=== PATIENT | male | born 1980 | race Caucasian/White ===

== ENCOUNTER 2023-01-19 08:49 | Inpatient (IN) | payer OTHER, SELFPAY ==
[2023-01-19] VITALS (25 sets, daily range): BP systolic 115–141; BP diastolic 67–89; PULSE 68–89; RESP 14–22; TEMP 36.3–37; O2SAT 94–100
--- NOTE | 2023-01-19 09:08 | ED_ITS ---
HPI - Abdominal Pain General Time Seen by Provider: 09:08 Date Seen: 01/19/23 Chief Complaint: Abdominal Pain Stated Complaint: Abdominal pain Time Seen by Provider: 01/19/23 09:08 Source: patient and RN notes reviewed Mode of arrival: ambulatory Limitations: no limitations History of Present Illness HPI narrative: Patient is a 42-year-old male coming in with worsening lower abdominal pain, primarily concentrated in the right to lower mid abdomen. Pain started yesterday but is worsening. He was feeling backed up, did take a laxative last night, did have looser stools overnight. This morning he was on the toilet going to go to the bathroom and had severe sudden 10/10 pain, made him go pale and white and diaphoretic per his report. He went into clinic to see Dr. Allen, was appropriately triaged over here given his severity of symptoms. He is nauseated but no vomiting today. Admits that he had minimal appetite yesterday. Denies any urinary symptoms. Has had a history of diverticulitis and states the pain has maybe started to feel like that. Does have a known right inguinal hernia but her knee is not hurting. Coughing will hurt in his abdomen. Denies any associated cough or cold symptoms. Denies any prior abdominal surgeries. Has not eaten today. MD elicited complaint: abdominal pain Pertinent past history: diverticulitis Related Data Allergies Allergy/AdvReac Type Severity Reaction Status Date / Time No Known Allergies Allergy Unknown Verified 01/19/23 10:04 Review of Systems Status of ROS Reports: 6 or more systems reviewed and unremarkable except as noted in History and below [facility] Medical History Abdominal pain ?R10.9 - Unspecified abdominal pain (ICD-10) Anxiety ?F41.9 - Anxiety disorder, unspecified (ICD-10) Diverticulitis ?K57.92 - Diverticulitis of intestine, part unspecified, without perforation or abscess without bleeding (ICD-10) Social History Smoking Status: Current every day smoker What tobacco products do you use: cigarettes How often do you have a drink containing alcohol: 2-4 times a month How many standard drinks containing alcohol do you have on a typical day: 1 or 2 AUDIT-C Alcohol total score: 2 Little interest or pleasure in doing things: not at all Feeling down, depressed, or hopeless: not at all Exam Const: Vital Signs, click to edit/add: Vital Signs - 24 hr 01/19/23 09:00 01/19/23 10:22 01/19/23 11:23 Temperature 97.3 F L 98.4 F Pulse Rate [Right Pulse Oximeter] 68 79 Respiratory Rate 22 22 Blood Pressure [Ri ght Upper Arm] 132/83 126/88 Pulse Oximetry 96 100 95 Oxygen Delivery Me thod Room Air Room Air Documenting provider has reviewed patient's vital signs: yes Common normals: no apparent distress, average body habitus, oriented x3, no limitations, healthy appearing and alert General appearance: cooperative, comfortable, well kempt and well developed HENMT: Common normals: normocephalic, head/scalp atraumatic, hearing grossly normal bilaterally, external ears normal and external nose normal Head and scalp: normocephalic and atraumatic Face and sinus: normal facial exam Nose: external nose normal External ear: external ears normal Eye: Common normals: PERRL, EOMs intact bilaterally, conjunctivae normal and no scleral icterus Conjunctiva: conjunctiva(e) normal Pupil: PERRL Neck & C-Spine: Common normals: full ROM, no lymphadenopathy, supple, no meningeal signs, no JVD and thyroid normal Thyroid: thyroid normal Lymph: Lymphatic: no lymphadenopathy noted Resp: Common normals: normal respiratory effort, no retractions, no use of accessory muscles and clear to auscultation bilaterally Effort & inspection: able to speak in complete sentences Auscultation: clear to auscultation bilaterally Cardio: Common normals: no JVD, regular rate, regular rhythm, S1 normal heart sound, S2 normal heart sound, no gallops, no clicks and no murmurs Rate: regular rate Rhythm: regular rhythm Heart sounds: S1 normal and S2 normal GI: Other: Patient has some epigastric tenderness on palpation without rebound or guarding, abdomen overall is soft. From the left lower quadrant to his right lower quadrant throughout the lower abdomen he is quite tender. There is some guarding in the right lower quadrant but I would not say he has rebound. I do not feel any underlying mass. Pain seems to be most concentrated in the right lower quadrant. Do not feel any strangulated hernia. Extremity: Other: Has some smaller pink base lesions with scale on his lower extremities but no underlying edema. Patient does confirm to me that he does have psoriasis. Neuro: Common normals: oriented x3 Sensorium/orientation: alert Meningeal signs: no meningeal signs Psych: Appearance: well kempt Course Course Hospital Course: This patient has obvious abdominal pain that certainly appendicitis and diverticulitis are running possibilities for diagnosis. He will need CT imaging and full complement of labs to further delineate possible internal abdominal diagnoses. Need to rule out surgical abdomen here. Will initiate IV fluids, given 4 mg IV Zofran and 15 mg IV Toradol. If the Toradol is not sufficient for pain control, will move to narcotics. Reevaluation(s) Time of Reevaluation #1: 10:49 Reevaluation #1: Spent 10 minutes reviewing with patient his diagnosis, possible plans of care at this time. He did ask that I explained to his whom he called on the phone and this was done. We are waiting surgeons decision for surgery here or transfer at this time. Patient's pain was not controlled by the Toradol, will give him some IV morphine. Time of Reevaluation #2: 12:06 Reevaluation #2: Dr. Michaels plans to go to OR. Consultations Consultation #1: Have contacted our general surgeon on-call Dr. Michaels. We have reviewed the case. She is going to review images and get back to me regarding taking him to the OR here or potential transfer after review of films. I will initiate Zosyn. Will let the patient know of his CT scan images at this time. Time: 10:35 Vital Signs Vital signs: Initial Vital Signs Temperature 97.3 F L 01/19/23 09:00 Temperature Source Temporal Artery Scan 01/19/23 09:00 Pulse Rate 68 01/19/23 09:00 Pulse Rhythm Regular 01/19/23 09:00 Respiratory Rate 22 01/19/23 09:00 Blood Pressure 132/83 01/19/23 09:00 Blood Pressure Mean 99 01/19/23 09:00 Pulse Oximetry 96 01/19/23 09:00 Oxygen Delivery Method Room Air 01/19/23 09:00 Vital Signs Temperature 97.3 F L 01/19/23 09:00 Pulse Rate 68 01/19/23 09:00 Respiratory Rate 22 01/19/23 09:00 Blood Pressure 132/83 01/19/23 09:00 Pulse Oximetry 96 01/19/23 09:00 Oxygen Delivery Method Room Air 01/19/23 09:00 Temperature 98.4 F 01/19/23 11:23 Pulse Rate 79 01/19/23 11:23 Respiratory Rate 22 01/19/23 11:23 Blood Pressure 126/88 01/19/23 11:23 Pulse Oximetry 95 01/19/23 11:23 Oxygen Delivery Method Room Air 01/19/23 11:23 MDM - Abdominal Pain Differential Diagnosis Differential diagnosis: Likely abdominal pain, acute appendicitis, diverticulitis, gastroenteritis and pancreatitis Lab Data Attestation: I reviewed the patient's lab results. Labs: Lab Results 01/19/23 01/19/23 Range/Units 09:20 10:30 WBC 17.40 H (4.50-11.00) K/uL RBC 6.13 H (4.30-5.90) m/uL Hgb 17.8 H (13.5-17.5) gm/dL Hct 54.9 H (37.0-53.0) % MCV 90 (80-100) fL MCH 29 (26-34) pg MCHC 32 (32-36) gm/dL RDW Coeff of Norman 13.5 (11.5-15.5) % Plt Count 166 (140-440) K/uL Neut % (Auto) 85.6 H (42.0-72.0) % Lymph % (Auto) 6.8 L (20-44) % Mcpherson % (Auto) 6.9 (0.0-11.0) % Eos % (Auto) 0.2 (0.0-7.0) % Baso % (Auto) 0.2 (0.0-3.0) % Neut # (Auto) 14.90 H (1.7-7.0) K/uL Lymph # (Auto) 1.20 (0.90-2.90) K/uL Mcpherson # (Auto) 1.20 H (0.00-0.90) K/UL Eos # (Auto) 0.00 (0.00-0.50) K/uL Baso # (Auto) 0.00 (0.00-0.30) K/uL Sodium 135 (135-149) mmol/L Potassium 4.2 (3.6-5.1) mmol/L Chloride 100 (96-114) mmol/L Carbon Dioxide 26 (20-32) mmol/L BUN 13 (5-24) mg/dL Creatinine 1.1 (0.5-1.5) mg/dL Estimated GFR 86 ml/min Glucose 153 H (60-115) mg/dL Lactate 1.4 (0.5-1.9) mmol/L Calcium 9.2 (8.4-10.6) mg/dL Total Bilirubin 2.0 H (0.1-1.5) mg/dL AST 24 (12-35) U/L ALT 29 (4-50) U/L Alkaline Phosphatase 71 (40-150) U/L C-Reactive Protein 20.3 H (0.5-1.0) mg/dL Total Protein 8.3 (6.0-8.3) g/dL Albumin 4.5 (3.3-5.0) g/dL Lipase 101 (23-300) U/L Urine Color Josephine A (Yellow) Urine Appearance Clear (Clear) Urine pH 7.0 (5.0-8.5) Ur Specific [place] 1.015 (1.000-1.030) Urine Protein Trace A (Negative) Urine Glucose (UA) Negative (Negative) Urine Ketones 1+ A (Negative) Urine Blood 1+ A (Negative) Urine Nitrite Negative (Negative) Urine Bilirubin Negative (Negative) Urine Urobilinogen 0.2 (0.2-1.0) Ur Leukocyte Esterase Negative (Negative) Urine RBC 0-2 (0-2) Urine WBC 0-2 (0-5) Ur Squamous Epith Cells None (None-Few) Urine Bacteria Few A (None) Imaging Data CT scan - abdomen: Attestation: I have reviewed the pertinent imaging results. Radiologist's impression: Patient: NICKIE JOHNS Facility:?[facility] Patient ID:?[id number] Site Patient ID:?[id number]. Site :?[id number] Study:?CT Abdomen/Pelvis 100 cc's Isovue 370-01/19/2023 10:03:27 AM Ordering Physician:?Leonie Ventura Final Report: INDICATION: Severe right lower quadrant abdominal pain. Nausea. History of diverticulitis. COMPARISON: None TECHNIQUE: CT examination of the abdomen and pelvis was performed following the uneventful intravenous administration of 100 cc of Isovue 370. Thin section axial images were obtained from the lung bases through the pubic symphysis. Oral contrast was not administered. Please note that all CT scans at this facility use dose modulation, iterative reconstruction, and/or weight-based dosing when appropriate to reduce radiation dose to as low as reasonably achievable. FINDINGS: LUNG BASES: The right lung is normal. There is atelectasis at the left base.The heart size is normal and the lung bases. There is a small hiatal hernia LIVER/BILIARY SYSTEM:The liver is normal in size and configuration. There is no focal mass and there is no intra- or extra hepatic biliary ductal dilatation.Hepatic steatosis. The gallbladder appears normal ADRENALS: The left adrenal gland is normal. There is a right adrenal mass measuring 3.7 x 3.1 centimeters. Based on its size and appearance, it should undergo formal evaluation by MRI at a clinically appropriate time KIDNEYS, URETERS and BLADDER:The kidneys appear normal. No visible mass, calculus or hydronephrosis. The ureters and bladder as visualized appear normal. SPLEEN:Normal appearance. PANCREAS: Appears normal. RETROPERITONEUM and MESENTERY: There is no mass, adenopathy or aortic aneurysm. GASTROINTESTINAL SYSTEM: Diverticulosis primarily in the sigmoid colon. Significant thickening and inflammatory change of the sigmoid colon deep within the pelvis. The sigmoid in this area is perforated and there is significant gas primarily in the root of the mesentery extending up the retroperitoneum. There is a small amount of extraluminal fluid in this area and there is what is likely free stool in the mesentery best seen on coronal image 74. Surgical consultation is advised. PELVIS: No mass, adenopathy or free fluid. OSSEOUS STRUCTURES and ABDOMINAL WALL: There is an age-appropriate appearance of the osseous structures.No significant abdominal wall defect. Discussed with Dr. Hadley at 10:25 a.m. on January 19, 2023 IMPRESSION: Findings consistent with complicated sigmoid diverticulitis. This appears to be perforated with significant air in the retroperitoneum and mesentery, a small amount of fluid and extraluminal fecal material. There is no collection at this time. Please note that all CT scans at this facility use dose modulation, iterative reconstruction, and/or weight-based dosing when appropriate to reduce radiation dose to as low as reasonably achievable. Dictated by Keron Pascual MD @ 01/19/2023 10:30:22 AM (Electronic Signature) Critical Care Time Critical Care Time Critical Care Time: No Discharge Plan Discharge Clinical Impression: Perforation of sigmoid colon due to diverticulitis Patient Disposition: XFER to OR Condition: Unchanged Follow Up/Referrals: Ajit Allen MD [Primary Care Provider] -
--- NOTE | 2023-01-19 09:13 | CRLHL7_ITS ---
For Patients: As a result of the Century Cures Act, medical imaging exams and procedure reports are released immediately into your electronic medical record. You may view this report before your referring provider. If you have questions, please contact your health care provider. INDICATION: Severe right lower quadrant abdominal pain. Nausea. History of diverticulitis. COMPARISON: None TECHNIQUE: CT examination of the abdomen and pelvis was performed following the uneventful intravenous administration of 100 cc of Isovue 370. Thin section axial images were obtained from the lung bases through the pubic symphysis. Oral contrast was not administered. Please note that all CT scans at this facility use dose modulation, iterative reconstruction, and/or weight-based dosing when appropriate to reduce radiation dose to as low as reasonably achievable. FINDINGS: LUNG BASES: The right lung is normal. There is atelectasis at the left base.The heart size is normal and the lung bases. There is a small hiatal hernia LIVER/BILIARY SYSTEM:The liver is normal in size and configuration. There is no focal mass and there is no intra- or extra hepatic biliary ductal dilatation.Hepatic steatosis. The gallbladder appears normal ADRENALS: The left adrenal gland is normal. There is a right adrenal mass measuring 3.7 x 3.1 centimeters. Based on its size and appearance, it should undergo formal evaluation by MRI at a clinically appropriate time KIDNEYS, URETERS and BLADDER:The kidneys appear normal. No visible mass, calculus or hydronephrosis. The ureters and bladder as visualized appear normal. SPLEEN:Normal appearance. PANCREAS: Appears normal. RETROPERITONEUM and MESENTERY: There is no mass, adenopathy or aortic aneurysm. GASTROINTESTINAL SYSTEM: Diverticulosis primarily in the sigmoid colon. Significant thickening and inflammatory change of the sigmoid colon deep within the pelvis. The sigmoid in this area is perforated and there is significant gas primarily in the root of the mesentery extending up the retroperitoneum. There is a small amount of extraluminal fluid in this area and there is what is likely free stool in the mesentery best seen on coronal image 74. Surgical consultation is advised. PELVIS: No mass, adenopathy or free fluid. OSSEOUS STRUCTURES and ABDOMINAL WALL: There is an age-appropriate appearance of the osseous structures.No significant abdominal wall defect. Discussed with Dr. Hadley at 10:25 a.m. on January 19, 2023 IMPRESSION: Findings consistent with complicated sigmoid diverticulitis. This appears to be perforated with significant air in the retroperitoneum and mesentery, a small amount of fluid and extraluminal fecal material. There is no collection at this time. Please note that all CT scans at this facility use dose modulation, iterative reconstruction, and/or weight-based dosing when appropriate to reduce radiation dose to as low as reasonably achievable. Dictated by Keron Pascual MD @ 01/19/2023 10:30:22 AM (Electronically Signed)
[2023-01-19 09:36] LABS: Basophils Percent Auto 0.2 % (0.0-3.0); Eosinophils Percent Auto 0.2 % (0.0-7.0); Hematocrit 54.9 % (37.0-53.0); Hemoglobin* 17.8 gm/dL (13.5-17.5); Immature Granulocytes Pct Auto 0.3 %; Lactate* 1.4 mmol/L (0.5-1.9); Lymphocytes Percent Auto 6.8 % (20-44); Mean Corpuscular HGB Conc 32 gm/dL (32-36); Mean Corpuscular Hemoglobin 29 pg (26-34); Mean Corpuscular Volume 90 fL (80-100); Monocytes Percent Auto 6.9 % (0.0-11.0); Neutrophils Percent Auto 85.6 % (42.0-72.0); Platelet Count* 166 K/uL (140-440); RDW Coefficient of Variation % 13.5 % (11.5-15.5); Red Blood Count 6.13 m/uL (4.30-5.90)
[2023-01-19 09:38] LABS: Slide Review Reflex No
[2023-01-19 09:57] LABS: Albumin* 4.5 g/dL (3.3-5.0); Chloride* 100 mmol/L (96-114); Sodium* 135 mmol/L (135-149)
[2023-01-19 09:58] LABS: Potassium* 4.2 mmol/L (3.6-5.1)
[2023-01-19 10:00] LABS: Alkaline Phosphatase* 71 U/L (40-150); Aspartate Amino Transferase* 24 U/L (12-35); Carbon Dioxide* 26 mmol/L (20-32); Creatinine* 1.1 mg/dL (0.5-1.5); Estimated Glomerular Filt Rate 86 ml/min
[2023-01-19 10:01] LABS: Alanine Aminotransferase* 29 U/L (4-50); Blood Urea Nitrogen* 13 mg/dL (5-24); Calcium* 9.2 mg/dL (8.4-10.6); Glucose* 153 mg/dL (60-115); Lipase* 101 U/L (23-300); Total Protein* 8.3 g/dL (6.0-8.3)
[2023-01-19] MEDS: 0.9 % SODIUM CHLORIDE 1000 ml 1,000 ML 500 ML IV (10:09)
[2023-01-19] MEDS: ONDANSETRON 2 MG/ML inj 4 MG IVP (10:10)
[2023-01-19] MEDS: KETOROLAC 15 MG/ML inj IVP ×2 (10:11→19:29)
[2023-01-19 10:18] LABS: C Reactive Protein* 20.3 mg/dL (0.5-1.0)
[2023-01-19 10:53] LABS: Appearance Urine Clear (Clear); Bilirubin Urine Negative (Negative); Blood Urine 1+ (Negative); Color Urine Orange (Yellow); Glucose Urine Negative (Negative); Ketones Urine 1+ (Negative); Leukocyte Esterase Urine Negative (Negative); Nitrite Urine Negative (Negative); Protein Urine Trace (Negative); Specific Gravity Urine 1.015 (1.000-1.030); Urobilinogen Urine 0.2 (0.2-1.0)
[2023-01-19] MEDS: MORPHINE 4 MG/ML INJ IVP (11:02)
[2023-01-19] MEDS: PIPERACILLIN/TAZOBACTAM 3.375 GM in 0.9 % SODIUM CHLORIDE Mini-bag 100 ML IVPB ×3 (11:04→22:19)
[2023-01-19 11:05] LABS: RBC Urine 0-2 (0-2); WBC Urine 0-2 (0-5)
[2023-01-19 11:06] LABS: Bacteria Urine Few
--- NOTE | 2023-01-19 11:29 | ED.NURSE ---
Pt reports last drink of water this morning at 2:30am, last bite of food was yesterday at 14:30.
--- NOTE | 2023-01-19 12:47 | PM.GSHP ---
History of Present Illness History of Present Illness Date Seen: 01/19/23 Chief complaint: Abdominal pain Narrative: Rob Krishnamurthy is a 42 year old male who presented to the ED this morning with severe lower abdominal pain. He stated that yesterday morning he woke up with pain in his pelvis. He states that he was able to eat some lunch but did not really feel well most of the day. He went to bed around 430. He woke up around 8:00 p.m. to watch prior works but then went back to bed. Around this time he was noted to have a fever of 101.7. This morning he had a dark watery bowel movement. He then went to have another bowel movement and he had pain which was so severe he became white and diaphoretic had a syncopal episode. At this point his brought him in to be seen. He states that he has a known right inguinal hernia. This has been more prominent and painful as well. He has had nausea but no vomiting. He states that initially the pain medicine that he was given in the ER did not help however he recently got morphine which did help calm things down. If he lays still he does not have pain. Movement causes severe pain. He states that he has had diverticulitis in the past. Most recently was approximately [address] scan was done, however he did get Augmentin and his symptoms resolved. Prior to this he states that he had an episode many years ago. I do not believe that this was CT confirmed. He has never had a colonoscopy. He has no family history of colon cancer. [facility] Medical History (Updated 01/19/23 @ 12:59 by Madhuri Michaels MD) Tobacco dependence ?F17.200 - Nicotine dependence, unspecified, uncomplicated (ICD-10) Obstructive sleep apnea syndrome ?G47.33 - Obstructive sleep apnea (adult) (pediatric) (ICD-10) Hyperlipidemia ?E78.5 - Hyperlipidemia, unspecified (ICD-10) Anxiety ?F41.9 - Anxiety disorder, unspecified (ICD-10) Diverticulitis ?K57.92 - Diverticulitis of intestine, part unspecified, without perforation or abscess without bleeding (ICD-10) Surgical History (Updated 01/19/23 @ 13:00 by Madhuri Michaels MD) H/O vasectomy ?Z98.52 - Vasectomy status (ICD-10) Social History (Updated 01/19/23 @ 13:01 by Madhuri Michaels MD) Narrative: 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 He is and has 4 children ages 2-19 years. Smoking Status: Current every day smoker What tobacco products do you use: cigarettes How often do you have a drink containing alcohol: 2-4 times a month How many standard drinks containing alcohol do you have on a typical day: 1 or 2 AUDIT-C Alcohol total score: 2 Little interest or pleasure in doing things: not at all Feeling down, depressed, or hopeless: not at all Meds Home Medications and Allergies Allergies Allergy/AdvReac Type Severity Reaction Status Date / Time No Known Allergies Allergy Unknown Verified 01/19/23 10:04 Exam Narrative: Exam Narrative: General appearance: Alert, cooperative, flushed appearing HENT Head: Normocephalic Ears: External ears normal Pulmonary: Clear to auscultation bilaterally Cardiovascular Heart: Regular rate and rhythm Extremities: warm and well perfused Gastrointestinal Abdominal: No scars. He is markedly tender in his lower and mid abdomen with significant rebound tenderness and guarding. The upper abdomen is minimally tender Musculoskeletal: Extremities: Upper: Both upper extremities have normal joint range of motion and intact strength. Lower: Both lower extremities have normal joint range of motion and intact strength. Skin: Normal skin color, texture, and turgor. Neurologic: No focal deficits Psychiatric: Alert, oriented, cooperative, normal affect. Const: Vital Signs, click to edit/add: Vital Signs - 24 hr 01/19/23 09:00 01/19/23 10:22 01/19/23 11:23 Temperature 97.3 F L 98.4 F Pulse Rate [Right Pulse Oximeter] 68 79 Respiratory Rate 22 22 Blood Pressure [Ri ght Upper Arm] 132/83 126/88 Pulse Oximetry 96 100 95 Oxygen Delivery Me thod Room Air Room Air Results Results Labs: White blood cell count is elevated at 17.4. Hemoglobin also elevated at 17.8 Total bilirubin is 2.00. CRP 20.3 Lactate 1.4. Electrolytes within normal limits. Abdomen CT scan report/results: report reviewed and image reviewed Additional studies: CT scan of the abdomen pelvis done today: FINDINGS: LUNG BASES: The right lung is normal. There is atelectasis at the left base.The heart size is normal and the lung bases. There is a small hiatal hernia LIVER/BILIARY SYSTEM:The liver is normal in size and configuration. There is no focal mass and there is no intra- or extra hepatic biliary ductal dilatation.Hepatic steatosis. The gallbladder appears normal ADRENALS: The left adrenal gland is normal. There is a right adrenal mass measuring 3.7 x 3.1 centimeters. Based on its size and appearance, it should undergo formal evaluation by MRI at a clinically appropriate time KIDNEYS, URETERS and BLADDER:The kidneys appear normal. No visible mass, calculus or hydronephrosis. The ureters and bladder as visualized appear normal. SPLEEN:Normal appearance. PANCREAS: Appears normal. RETROPERITONEUM and MESENTERY: There is no mass, adenopathy or aortic aneurysm. GASTROINTESTINAL SYSTEM: Diverticulosis primarily in the sigmoid colon. Significant thickening and inflammatory change of the sigmoid colon deep within the pelvis. The sigmoid in this area is perforated and there is significant gas primarily in the root of the mesentery extending up the retroperitoneum. There is a small amount of extraluminal fluid in this area and there is what is likely free stool in the mesentery best seen on coronal image 74. Surgical consultation is advised. PELVIS: No mass, adenopathy or free fluid. OSSEOUS STRUCTURES and ABDOMINAL WALL: There is an age-appropriate appearance of the osseous structures.No significant abdominal wall defect. Discussed with Dr. Hadley at 10:25 a.m. on January 19, 2023 IMPRESSION: Findings consistent with complicated sigmoid diverticulitis. This appears to be perforated with significant air in the retroperitoneum and mesentery, a small amount of fluid and extraluminal fecal material. There is no collection at this time. Please note that all CT scans at this facility use dose modulation, iterative reconstruction, and/or weight-based dosing when appropriate to reduce radiation dose to as low as reasonably achievable. Dictated by Keron Pascual MD @ 01/19/2023 10:30:22 AM Assessment and Plan Assessment and plan (1) Perforation of sigmoid colon due to diverticulitis: Status: Acute (2) Tobacco dependence: Status: Acute (3) Obstructive sleep apnea syndrome: Status: Acute Plan The patient is a 42-year-old male with perforated diverticulitis. He does appear to have peritonitis on exam and has been afebrile though currently is not febrile. I reviewed the images with the radiologist as well as on my own. There is a significant amount of air in the retroperitoneum and there also dots in the pericolonic fat more anterolaterally as well. It does not obviously appear as though the air is free within the peritoneum itself, though there is a small amount of intraperitoneal fluid. Because of the degree of air which is tracking within the retroperitoneum, even up to the aortic bifurcation, and his clinical exam, I think that the best course of action is laparotomy with sigmoidectomy. We discussed the surgery, indications as well as risks and benefits. I explained to him that in the setting of emergency diverticulitis surgery, because of the intra-abdominal contamination, infection and risk of anastomotic leak, generally a temporary stoma is necessary. This can either be in the form of an end colostomy with a Poncho's pouch or a primary anastomosis with a diverting loop ileostomy depending on the degree of intra-abdominal contamination and the amount of colon affected. I explained the rationale behind each. We discussed risks of surgery including bleeding, infection and injury to other structures. We discussed his hospital stay, recovery after surgery and also briefly touched on the timing of stoma takedown. He was understandably somewhat overwhelmed about this, however, asked appropriate questions and agreed to proceed. We are planning on surgery emergently as soon as the OR is available.
--- NOTE | 2023-01-19 13:05 | ED.NURSE ---
Pt admitted to OR
--- NOTE | 2023-01-19 13:16 | ED.NURSE ---
Pt reporting an increase in pain again after urinating.
[2023-01-19] MEDS: LACTATED RINGERS 1000 ML 1,000 ML 100 ML IV ×4 (13:17→18:49)
--- NOTE | 2023-01-19 15:16 | SUR.OPER ---
FAMILY UPDATE: THIS SOLID TIRE TUBER MACHINE OPERATOR SPOKE TO THE PATIENT'S (ALIN) TO UPDATE THE PROGRESS OF THE PROCEDURE.
--- NOTE | 2023-01-19 16:00 | SUR.OPER ---
FAMILY UPDATE: THIS AGRICULTURE RESEARCH DIRECTOR SPOKE TO THE PATIENT'S (ALIN) TO GIVE AN UPDATE ON THE PROGRESS OF THE PROCEDURE.
--- NOTE | 2023-01-19 17:04 | SUR.OPER ---
FAMILY UPDATE: THIS ENROLLMENT CONSULTANT INFORMED THE PATIENT'S (ALIN) THAT THE PROCEDURE TO COMPLETE AND WE ARE CLOSING THE INCISIONS. THIS ENROLLMENT CONSULTANT ALSO INFORMED ALIN THAT THE PATIENT WILL BE GOING TO RECOVERY AND THEN (ULTIMATELY) TO THE MEDICAL/SURGICAL UNIT.
--- NOTE | 2023-01-19 17:56 | PM.GSPRC ---
Operative Note Date of procedure: 01/19/23 Pre-op diagnosis: Perforated diverticulitis with peritonitis Post-op diagnosis: Same Type of Procedure: 1. Exploratory laparotomy 2. Sigmoidectomy with primary anastomosis 3. Incidental appendectomy 4. Diverting Loop ileostomy Indications: The patient is a 42-year-old male who presented to the emergency department with severe abdominal pain. In he had a history of diverticulitis in the past. He was felt to have a perforation of his sigmoid colon with significant retroperitoneal air as well as some fluid in the abdomen. Because of the degree of retroperitoneal air and concern for peritonitis on his abdominal exam, I recommended laparotomy and sigmoidectomy. Procedure Description: After discussing the risks and benefits of the procedure, the patient signed informed consent.? The operative site was marked and the patient was brought to the operating room and placed on the operating table in supine position.? Care was taken to pad the patient's pressure points.?? The patient was then intubated by anesthesia.? He was placed in lithotomy position. A Youngblood catheter was then placed.? The operative site was then prepped and draped in the usual sterile fashion.? A time-out was then performed. An incision was made in the midline from just above the umbilicus to just above the pubic bone. Dissection was taken down into the subcutaneous tissue with cautery until the fascia was encountered. This was incised in the midline. The peritoneal cavity was entered. There was a smell of enteric contents noted however no overt purulence. An Hansel wound retractor was then placed into the wound. An Omni retractor was then brought into the field in used to retract the abdominal wall. The patient was placed into Trendelenburg I then ran the small bowel from the ligament of Treitz that was cecal valve. There were some adhesions between palpable mass in the pelvis and the small bowel. There was fibrinous inflammation on 1 loop of small bowel. The distal ileum was adherent to the lateral pelvic wall on the right. These adhesions were taken down with the Metzenbaum scissors. Once this was done the small bowel was then packed up into the upper abdomen, exposing the pelvis and sigmoid colon. A large inflammatory mass was encountered. This was adherent to the left pelvis. Using a right angle and cautery, I was able to divide some of these adhesions anterolaterally, freeing up the sigmoid colon with the inflammatory mass. I further mobilized the sigmoid colon from the lateral pelvic sidewall by incising the lateral peritoneal attachment. This was divided with cautery using a right angle scissor. Great care was taken to divide only the peritoneum to avoid injury to the retroperitoneal structures. Once this was free, I was able to pull the mass out of the pelvis. There was purulent fluid in the pelvis. The pericolonic fat was necrotic and draining murky fluid which was foul smelling. I was able to palpate soft rectum below the inflammatory mass as well as healthy descending colon superior to it. I began by creating a mesenteric window above the inflammatory mass in the healthy area at the junction of the descending colon and the sigmoid colon. I then divided the colon using a blue load ALIS stapler. Then using the LigaSure, I divided the sigmoid colon mesentery. Small vessels which were visible were doubly ligated with suture. Once we reached the area of the mass, there was jase stool noted in the mesentery. This was carefully removed and suction to avoid any further contamination. I took my dissection down to the superior aspect of the rectum. I dissected the pericolonic fat using cautery, clearing off proximal rectum for the stapler. Then using a contour stapler, I divided the colon at the superior aspect of the rectum. The staple line appeared healthy without any signs of bleeding. A small bleeding vessel in the mesentery was oversewn. Hemostasis at this point appeared excellent. Specimen was sent to pathology with a stitch at the proximal end. I then turned my attention to mobilizing proximal colon. Using a combination of dissection with a right angle as well as finger dissection, I was able to take down the lateral peritoneal attachments using cautery. I took this up to the splenic flexure. The colon was noted to be very mobile and dropped easily past the pelvic brim down into the pelvis. Because of this I did not feel any further mobilization was necessary. I then removed the staple line from the distal colon. I then inserted the anvil of a 31 mm EEA stapler into the open end of the colon. I then created a pursestring suture using 2-0 Prolene. I snugged this down. I then cleared the fat from the colon using a combination of cautery as well as 3-0 silk ties to tie off any small blood vessels. Once this was done I created a 2nd pursestring using 3-0 Vicryl to ensure the end of the colon was snugged up around the anvil. I then dropped this back into the abdomen. I then performed a proctoscopy. The proctoscope was advanced in through the anus up into the rectum after performing a digital rectal exam. The rectal stump measured 17 cm. I then sequentially passed the dilators to ensure the stapler would pass. These passed easily. I then inserted the EEA stapler. Once this was appropriately seated at the end of the rectal stump I deployed the trocar. My assistant professor of english then hooked the anvil in the distal colon to the trocar. I closed the stapler and waited 30 seconds. I then deployed the stapler in waited another 30 seconds. I removed the stapler according to the manufacture's instructions. There was noted to be 2 complete anastomotic rings. I then performed a 2nd proctoscopy. There was a small amount of blood in the rectum. The leak test was negative. Now that this was done I scrubbed back in and irrigated the abdomen with copious saline. There was no further purulent fluid. I examined the retroperitoneum where there had been significant air and there was no further murky fluid emerging. There did not appear to be any undrained pockets. The patient and I had discussed possible incidental appendectomy and because there I had been minimal blood loss and the case had gone smoothly I elected to perform this. I examined the appendix. It was somewhat edematous distally, likely from the inflammatory process. I divided the mesentery using the LigaSure. I then divided the appendiceal base using a blue load ALIS stapler. The appendix was then sent to pathology. Because of the contaminated nature of the case in the fact that the patient is a smoker, I elected to proceed with a diverting loop ileostomy to protect the anastomosis. I identified an area of ileum which was approximately 20-30 cm from the ileocecal valve. This came up easily to the abdominal wall. I then removed the Hansel wound retractor as well as the Omni retractor. I chose an area of abdominal wall that was lateral to the umbilicus based on the patient's abdominal wall anatomy. I incised the skin into dissection down to the rectus sheath. A cruciate incision was then created with cautery. The rectus muscle fibers were then bluntly spread exposing the posterior sheath. A cruciate incision was made posteriorly as well. I was then able to pass 2 fingers through the stoma trephine. Through this I then passed the loop of ileum after confirming that it was appropriately oriented. Once this was done, the fascia was closed with a running looped 0 Maxon suture. The wound was copiously irrigated. The majority of the wound was closed with 3 0 Vicryl dermal and 4-0 Monocryl running subcuticular suture. The inferior aspect of the wound was left open given the contaminated nature of this case. Sterile dressing was then applied. I then turned my attention to maturing the stoma. I incised the anti mesenteric aspect of the ileum. I then matured the stoma in a Iliana fashion with 3-0 Vicryl [place] sutures. I then created a mucocutaneous junction with full-thickness bites of the bowel as well as the dermis circumferentially. The stoma was interrogated and both limbs were patent through the fascia. Stoma appliance was then placed. The patient was then woken and transported to the recovery area in stable condition. ? The patient tolerated the procedure well. Findings: Perforated diverticulitis with purulence in the pelvis and necrotic pericolonic fat with stool spillage in the retroperitoneum. Anesthesia: GETA Surgeon: Madhuri Michaels MD Estimated blood loss (mL): 50 Additional Specimen Information: 1. Sigmoid colon with stitch proximal and anastomotic ring 2. Appendix Condition: stable Disposition: PACU
--- NOTE | 2023-01-19 17:58 | P.ANES_ITS ---
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
--- NOTE | 2023-01-19 17:59 | P.NB_ITS ---
Nerve Block Nerve Block Time Seen by Provider: 13:25 Date Seen: 01/19/23 Type of block requested by surgeon for post-operative analgesia: TAP Side: bilateral Time out performed: Yes Verification of patient name: Yes Verification of date of : Yes Site marking: not applicable Name of person performing procedure: joanna Continuous monitoring Was continuous monitoring of O2 sat, B/P, residential monitor, recorded every 15 minutes?: Yes Procedure Checklist: sterile prep, needles and gloves Ultrasound guided. Images saved: Yes Medications given in 5ml increments after negative aspiration: Marcaine %: 0.25 mL: 30 Needle gauge: 20 and Exparel mL: 10 Patient tolerated procedure well: Yes Block Charges Block Charge (with Pro Fee): TAP Bilateral Use of Ultrasound Machine for Block: Yes- US Guidance/pain block
[2023-01-19] MEDS: fentaNYL 100 MCG/2 ML inj 50 MCG IVP (18:20)
[2023-01-19] MEDS: HYDROmorphone 0.5 mg/0.5 ml inj IVP ×3 (19:00→22:20)
[2023-01-19] MEDS: NICOTINE 21 MG PATCH 1 PATCH TRANSDERMA (19:21)
[2023-01-19] MEDS: BENZOCAINE/MENTHOL 1 EACH LOZENGE MUCOUS MEM (20:22)
[2023-01-19] MEDS: HYDROCODONE-ACETAMIN 5-325 MG 1 TAB PO (21:29)
--- NOTE | 2023-01-19 22:09 | PC.NURSE ---
Updated Dr. Michaels on patient's request for sleep med, order for Melatonin obtained. Also updated on pain 01/24, VSS (HR 70's, SBP 120's) to continue with ordered pain medications at this time.
[2023-01-19] MEDS: MELATONIN 3 MG TABLET PO (22:31)
[2023-01-20] VITALS (7 sets, daily range): BP systolic 109–134; BP diastolic 69–92; PULSE 69–109; RESP 16–18; TEMP 36.2–37; O2SAT 92–97
[2023-01-20] MEDS: HYDROmorphone 0.5 mg/0.5 ml inj IVP ×5 (00:31→22:45)
[2023-01-20] MEDS: ONDANSETRON 2 MG/ML inj IVP ×4 (00:46→19:07)
[2023-01-20] MEDS: HYDROCODONE-ACETAMIN 5-325 MG 1 TAB PO ×4 (01:11→21:16)
[2023-01-20] MEDS: PIPERACILLIN/TAZOBACTAM 3.375 GM in 0.9 % SODIUM CHLORIDE Mini-bag 100 ML IVPB ×4 (03:51→21:16)
[2023-01-20] MEDS: KETOROLAC 15 MG/ML inj IVP ×3 (05:20→20:36)
[2023-01-20] MEDS: LORazepam 2 MG/ML inj IVP ×3 (05:44→21:15)
[2023-01-20 06:48] LABS: Hemoglobin* 14.9 gm/dL (13.5-17.5); Immature Granulocytes Pct Auto 0.2 %; Lymphocytes Percent Auto 5.4 % (20-44); Mean Corpuscular HGB Conc 32 gm/dL (32-36); Mean Corpuscular Hemoglobin 29 pg (26-34); Mean Corpuscular Volume 91 fL (80-100); Monocytes Percent Auto 6.3 % (0.0-11.0); Neutrophils Percent Auto 88.1 % (42.0-72.0); Platelet Count* 170 K/uL (140-440); Red Blood Count 5.08 m/uL (4.30-5.90); White Blood Count* 18.49 K/uL (4.50-11.00)
[2023-01-20 06:52] LABS: Slide Review Reflex No
--- NOTE | 2023-01-20 06:55 | PC.NURSE ---
Patient admitted to unit at 1837 status post op sigmoidectomy with ostomy. Pain to midline abdomen reported throughout shift, patient utilizing PRN dilaudid, ketorolac and norco as well as an ice pack for pain. Patient continues to report pain at 5-7/10 with medication use, Dr Michaels update at 2200 with patients continued pain and request for sleep medication. New order for melatonin PRN and to continue medications as ordered. Dressing to midline intact, small amount of bloody drainage noted at distal end of dressing, integrity not compromised. Patient reporting throat pain, benzocaine throat lozenges ordered and patient reporting moderate relief. Indwelling paez catheter patent, draining cloudy orange/pink urine. Patient reports pain when tubing to catheter is moved. Requesting SCD's to be removed, after one hour they were replaced and patient not tolerating them, changed to plexipulses but patient stating they are bothering him. Instructed on ankle pumps. Increased anxiety, having difficulty sleeping due to worries over his current illness, how home life will be and working. Dr. Michaels updated and ordered PRN ativan, 0.5mg administered at 0545 with minimal effectiveness. Indigestion reported, omeprazole and tums ordered, awaiting verification from pharmacy. Cary RN will administer medication once available from pharmacy. Patient room change from CCU1 to CCU3 due to high pitched noise coming from vents, unable to tolerate lighting from hallway while in CCU3 and no sleep masks available, patient moved to 282 to provide a quiet, restful environment.
[2023-01-20 07:10] LABS: Albumin* 3.2 g/dL (3.3-5.0)
[2023-01-20 07:11] LABS: Chloride* 100 mmol/L (96-114); Potassium* 4.6 mmol/L (3.6-5.1); Sodium* 134 mmol/L (135-149)
[2023-01-20 07:13] LABS: Aspartate Amino Transferase* 25 U/L (12-35); Bilirubin Direct* 0.8 mg/dL (0.0-0.5); Carbon Dioxide* 28 mmol/L (20-32); Creatinine* 0.9 mg/dL (0.5-1.5); Estimated Glomerular Filt Rate 109 ml/min; Total Protein* 6.3 g/dL (6.0-8.3)
[2023-01-20 07:14] LABS: Alanine Aminotransferase* 24 U/L (4-50); Alkaline Phosphatase* 55 U/L (40-150); Blood Urea Nitrogen* 16 mg/dL (5-24); Glucose* 127 mg/dL (60-115)
[2023-01-20 07:15] LABS: Calcium* 8.1 mg/dL (8.4-10.6)
[2023-01-20] MEDS: OMEPRAZOLE 20 MG CAPSULE DR PO (07:38)
[2023-01-20] MEDS: CALCIUM CARBONATE 500 MG CHEW PO ×3 (07:46→19:07)
[2023-01-20] MEDS: LACTATED RINGERS 1000 ML 1,000 ML 100 ML IV ×2 (07:47→17:00)
--- NOTE | 2023-01-20 12:35 | PM.GSPN ---
Subjective Subjective Date Seen: 01/20/23 Interval history: Patient did well overnight. He did not sleep at all. His pain is controlled with pain medication. He seems very overwhelmed by his condition and his surgery. Complains of heartburn and nausea. Exam Narrative: Exam Narrative: Abdomen is soft, not distended, surgical incision is covered with dry dressing. Right-sided ileostomy is pink. Const: Vital Signs, click to edit/add: Vital Signs - 24 hr 01/19/23 13:06 01/19/23 17:50 01/19/23 17:55 Temperature 98.3 F 98.1 F Pulse Rate 89 76 Pulse Rate [Right Pulse Oximeter] 71 Respiratory Rate 20 18 16 Blood Pressure 137/83 140/86 H Blood Pressure [Le ft Arm] Blood Pressure [Ri ght Upper Arm] 133/85 Pulse Oximetry 98 95 95 Oxygen Delivery Me thod Room Air Room Air Room Air Oxygen Flow Rate 01/19/23 18:00 01/19/23 18:05 01/19/23 18:10 Temperature Pulse Rate 85 77 74 Pulse Rate [Right Pulse Oximeter] Respiratory Rate 16 14 14 Blood Pressure 136/89 136/83 131/79 Blood Pressure [Le ft Arm] Blood Pressure [Ri ght Upper Arm] Pulse Oximetry 94 97 96 Oxygen Delivery Me thod Room Air Nasal Cannula Nasal Cannula Oxygen Flow Rate 2 2 01/19/23 18:15 01/19/23 18:20 01/19/23 18:25 Temperature 97.6 F Pulse Rate 79 68 80 Pulse Rate [Right Pulse Oximeter] Respiratory Rate 14 14 14 Blood Pressure 135/85 133/86 141/84 H Blood Pressure [Le ft Arm] Blood Pressure [Ri ght Upper Arm] Pulse Oximetry 96 95 96 Oxygen Delivery Me thod Nasal Cannula Nasal Cannula Nasal Cannula Oxygen Flow Rate 2 2 2 01/19/23 18:30 01/19/23 18:40 01/19/23 18:43 Temperature 98.4 F Pulse Rate 77 Pulse Rate [Right Pulse Oximeter] 80 Respiratory Rate 14 20 Blood Pressure 124/86 Blood Pressure [Le ft Arm] 127/80 Blood Pressure [Ri ght Upper Arm] Pulse Oximetry 96 96 96 Oxygen Delivery Me thod Nasal Cannula Nasal Cannula Oxygen Flow Rate 2 1 01/19/23 18:45 01/19/23 19:00 01/19/23 19:15 Temperature 98.4 F 97.8 F Pulse Rate Pulse Rate [Right Pulse Oximeter] 82 79 77 Respiratory Rate 20 20 Blood Pressure Blood Pressure [Le ft Arm] 130/77 132/85 128/84 Blood Pressure [Ri ght Upper Arm] Pulse Oximetry 95 95 96 Oxygen Delivery Me thod Nasal Cannula Nasal Cannula Nasal Cannula Oxygen Flow Rate 1 1 1 01/19/23 19:30 01/19/23 19:44 01/19/23 20:00 Temperature 98.4 F Pulse Rate 80 Pulse Rate [Right Pulse Oximeter] 77 79 Respiratory Rate 16 20 Blood Pressure Blood Pressure [Le ft Arm] 120/83 127/80 117/75 Blood Pressure [Ri ght Upper Arm] Pulse Oximetry 97 96 Oxygen Delivery Me thod Nasal Cannula Nasal Cannula Nasal Cannula Oxygen Flow Rate 1 1 1 01/19/23 20:30 01/19/23 21:30 01/19/23 22:30 Temperature Pulse Rate Pulse Rate [Right Pulse Oximeter] 75 80 70 Respiratory Rate 16 Blood Pressure Blood Pressure [Le ft Arm] 133/87 129/67 124/76 Blood Pressure [Ri ght Upper Arm] Pulse Oximetry 96 98 96 Oxygen Delivery Me thod Nasal Cannula Nasal Cannula Nasal Cannula Oxygen Flow Rate 1 1 1 01/19/23 23:30 01/20/23 00:30 01/20/23 03:00 Temperature 98.6 F 98.6 F 97.2 F L Pulse Rate Pulse Rate [Right Pulse Oximeter] 80 78 69 Respiratory Rate 16 16 16 Blood Pressure Blood Pressure [Le ft Arm] 115/71 119/77 109/75 Blood Pressure [Ri ght Upper Arm] Pulse Oximetry 97 96 97 Oxygen Delivery Me thod Nasal Cannula Nasal Cannula Room Air Oxygen Flow Rate 1 1 01/20/23 07:00 01/20/23 07:00 01/20/23 07:00 Temperature 97.2 F L Pulse Rate Pulse Rate [Right Pulse Oximeter] 77 77 Respiratory Rate 16 16 Blood Pressure Blood Pressure [Le ft Arm] 122/81 Blood Pressure [Ri ght Upper Arm] Pulse Oximetry 96 96 Oxygen Delivery Me thod Room Air Oxygen Flow Rate Progress Note: A&P Assessment and plan (1) Perforation of sigmoid colon due to diverticulitis: Status: Acute Plan 42-year-old male s/p exploratory laparotomy, sigmoidectomy with primary anastomosis and diverting loop ileostomy POD 1. We will full keep the Youngblood catheter in for another day. Patient has some pink sediment in the catheter. I discussed with the patient that he should avoid drinking too much water since he may have postoperative ileus. Encourage him to ambulate as much as possible. Lovenox for DVT prophylaxis.
[2023-01-20] MEDS: PROCHLORPERAZINE 5 MG/ML VIAL 10 MG IV ×2 (12:51→19:52)
--- NOTE | 2023-01-20 13:24 | NUTR.NU ---
RDN with MD consult for diet education regarding new ileostomy. Patient was provided diet education related to new ileostomy.? Education provided on following a low fiber diet for the next ~4 weeks or per MD recommendation.? Education included recommendations on following a low-fiber diet of less than 13 grams of fiber per day and included foods that are recommended and not recommended.? Also reviewed foods that may cause blockage, foods that may cause gas or odor, foods that may help relieve gas or odor, foods that may cause diarrhea, foods that may help thicken stool, and foods that may discolor stool. Verbal and written information as well as sample menus provided from [facility] on nutrition therapy for ileostomy and low-fiber diet.? Patient verbalized understanding and had no questions or concerns.? RDN's contact information was provided and patient was encouraged to contact RDN with questions. RDN will continue to monitor PRN.
[2023-01-20] MEDS: NICOTINE 21 MG PATCH 1 PATCH TRANSDERMA (19:07)
--- NOTE | 2023-01-20 19:55 | PC.NURSE ---
End of Shift: Pain to midline abdomen reported throughout shift, patient utilizing PRN dilaudid, ketorolac and norco as well as an ice pack for pain see eMAR. Patient continues to report pain at 5-7/10 with medication use. Dressing to midline intact, small amount of bloody drainage noted at distal end of dressing. Dressing will be changed tomorrow 01/20 per MD Maxwell. Indwelling paez catheter patent, draining cloudy orange/pink urine. Patient had increased anxiety throughout the day about his situation, PRN ativan, 0.5mg administered with relief. Indigestion reported, omeprazole and tums administered with minimal relief, technical writer called Dr. Maxwell and PRN compazine administered. Patient managed to sleep a few hours from [id number].
[2023-01-20] MEDS: ENOXAPARIN 40 MG/0.4 ML INJ SUBCUT (20:36)
[2023-01-20] MEDS: PANTOPRAZOLE SODIUM 40 MG INJ IVP (20:36)
[2023-01-20] MEDS: MELATONIN 3 MG TABLET PO (22:45)
[2023-01-21] MEDS: PROCHLORPERAZINE 5 MG/ML VIAL 10 MG IV ×3 (02:05→23:59)
[2023-01-21] MEDS: HYDROCODONE-ACETAMIN 5-325 MG 1 TAB PO ×2 (02:05→14:32)
[2023-01-21] MEDS: LACTATED RINGERS 1000 ML 1,000 ML 100 ML IV ×2 (02:07→16:55)
[2023-01-21 03:00] VITALS: BP 130/85; PULSE 98; RESP 14; TEMP 36.8
[2023-01-21] MEDS: LORazepam 2 MG/ML inj IVP ×2 (04:10→14:33)
[2023-01-21] MEDS: PIPERACILLIN/TAZOBACTAM 3.375 GM in 0.9 % SODIUM CHLORIDE Mini-bag 100 ML IVPB ×4 (04:10→21:55)
[2023-01-21] MEDS: KETOROLAC 15 MG/ML inj IVP ×4 (04:10→23:51)
[2023-01-21] MEDS: ONDANSETRON 2 MG/ML inj IVP ×3 (05:31→20:20)
[2023-01-21] MEDS: HYDROmorphone 0.5 mg/0.5 ml inj IVP ×4 (05:31→20:20)
--- NOTE | 2023-01-21 06:28 | PC.NURSE ---
Patient alert and oriented x 3. Continued reports of pain to abdomen, rating at 5-7/10. Pain managed with norco, dilaudid and ketorolac. Increased pain due to gas and pressure, abdomen is firm and distended. Dr. Maxwell updated on gas and indigestion feeling, new order for pantoprazole now and the daily, discontinue omeprazole. Bowel sounds active x 4 quadrants, small amount of white, thick drainage from stoma and small amount of air noted in bag. Patient up and ambulating in the hallway independently with . Patient continues to have worries over current health situation, ativan utilized and effective in helping patient sleep. Youngblood patent, draining clear dark juan c urine.
--- NOTE | 2023-01-21 07:27 | P.GSPN_ITS ---
Subjective Subjective Date Seen: 01/21/23 Interval history: Patient complained of nausea yesterday but no vomiting. His pain was controlled. He ambulated several times. He slept better last night. Urine cleared in the Youngblood bag. Exam 2 Narrative: Exam Narrative: Abdomen is soft, distended, tender to palpation in epigastrium and on the right side. The ileostomy is pink with sweat in the bag. Midline incision with clean Steri-Strips. There is packing in the lower part of the laparotomy incision with no surrounding erythema. Const: Vital Signs, click to edit/add: Vital Signs - 24 hr 01/20/23 11:00 01/20/23 15:00 01/20/23 15:00 Temperature Pulse Rate [Right Pulse Oximeter] 77 Respiratory Rate 16 16 Blood Pressure [Le ft Arm] Pulse Oximetry 96 Oxygen Delivery Me thod Oxygen Flow Rate 01/20/23 15:00 01/20/23 19:00 01/20/23 23:00 Temperature 97.8 F Pulse Rate [Right Pulse Oximeter] 77 109 H Respiratory Rate 16 16 Blood Pressure [Le ft Arm] 134/92 H Pulse Oximetry 96 92 92 Oxygen Delivery Me thod Room Air Room Air Oxygen Flow Rate 1 01/20/23 23:00 01/21/23 03:00 Temperature 97.8 F 98.2 F Pulse Rate [Right Pulse Oximeter] 89 98 Respiratory Rate 18 14 Blood Pressure [Le ft Arm] 123/69 130/85 Pulse Oximetry 92 Oxygen Delivery Me thod Room Air Room Air Oxygen Flow Rate Progress Note: A&P Assessment and plan (1) Perforation of sigmoid colon due to diverticulitis: Status: Acute Plan 42-year-old male s/p open sigmoidectomy with primary anastomosis and diverting loop ileostomy POD 2. Will continue NPO until return of bowel function. The Youngblood catheter will be removed today. Will continue antibiotics.
[2023-01-21 07:38] LABS: Basophils Percent Auto 0.2 % (0.0-3.0); Eosinophils Percent Auto 1.7 % (0.0-7.0); Hematocrit 44.2 % (37.0-53.0); Hemoglobin* 14.1 gm/dL (13.5-17.5); Immature Granulocytes Pct Auto 0.3 %; Mean Corpuscular HGB Conc 32 gm/dL (32-36); Mean Corpuscular Hemoglobin 29 pg (26-34); Mean Corpuscular Volume 91 fL (80-100); Monocytes Percent Auto 7.3 % (0.0-11.0); Neutrophils Percent Auto 84.5 % (42.0-72.0); Platelet Count* 199 K/uL (140-440); RDW Coefficient of Variation % 13.9 % (11.5-15.5); Red Blood Count 4.85 m/uL (4.30-5.90); White Blood Count* 15.31 K/uL (4.50-11.00)
[2023-01-21 07:40] LABS: Slide Review Reflex No
[2023-01-21 07:53] LABS: Aspartate Amino Transferase* 23 U/L (12-35); Bilirubin Direct* 0.4 mg/dL (0.0-0.5); Bilirubin Total* 1.1 mg/dL (0.1-1.5)
[2023-01-21 07:54] LABS: Alanine Aminotransferase* 22 U/L (4-50); Alkaline Phosphatase* 54 U/L (40-150)
[2023-01-21 08:00] VITALS: BP 140/96; PULSE 81; RESP 16; TEMP 36.7; O2SAT 93
[2023-01-21] MEDS: PANTOPRAZOLE SODIUM 40 MG INJ IVP (08:49)
[2023-01-21 12:00] VITALS: BP 137/87; PULSE 79; RESP 16; TEMP 36.8; O2SAT 94
[2023-01-21 15:20] VITALS: BP 147/87; PULSE 91; RESP 16; TEMP 36.9; O2SAT 93
--- NOTE | 2023-01-21 16:06 | PC.NURSE ---
End of shift. Pt alert and oriented x 4. Abd pain , rating at 3-6/10. po norco, IV Dilaudid, IV ketorolac, IV Ativan given with relief. abdomen is distended. Bowel sounds hypo in upper and absent in the lower, encouraged walking. Youngblood was d/c and pt did void after Youngblood was d/c. ostomy had 200 of doan fluid in the bad no gas. pt still not wanting to look at ostomy for do the education on it. Pt is up ambulating in the hallway independently. IV is patent.. plexi are on and off. ice to the abd. dressing was changed this am. per md orders. ostomy has been patent. he has pain, nausea and anxiety. he is on sips and chips.
[2023-01-21 19:00] VITALS: BP 148/91; PULSE 85; RESP 16; TEMP 36.2; O2SAT 94
[2023-01-21] MEDS: NICOTINE 21 MG PATCH 1 PATCH TRANSDERMA (19:33)
[2023-01-21] MEDS: ENOXAPARIN 40 MG/0.4 ML INJ SUBCUT (21:56)
[2023-01-21 22:57] VITALS: BP 147/95; PULSE 86; RESP 16; TEMP 37.1; O2SAT 95
[2023-01-22] MEDS: LORazepam 2 MG/ML inj IVP ×2 (01:20→12:46)
[2023-01-22] MEDS: MELATONIN 3 MG TABLET PO ×2 (02:52→22:27)
[2023-01-22 03:00] VITALS: BP 141/96; PULSE 83; RESP 16; TEMP 37.1; O2SAT 93
[2023-01-22] MEDS: LACTATED RINGERS 1000 ML 1,000 ML 100 ML IV ×2 (03:22→18:01)
[2023-01-22] MEDS: PIPERACILLIN/TAZOBACTAM 3.375 GM in 0.9 % SODIUM CHLORIDE Mini-bag 100 ML IVPB ×4 (03:22→21:31)
[2023-01-22] MEDS: ONDANSETRON 2 MG/ML inj IVP (04:38)
[2023-01-22] MEDS: HYDROmorphone 0.5 mg/0.5 ml inj IVP (04:39)
[2023-01-22] MEDS: KETOROLAC 15 MG/ML inj IVP ×2 (06:32→14:57)
[2023-01-22] MEDS: PROCHLORPERAZINE 5 MG/ML VIAL 10 MG IV ×2 (06:33→14:57)
[2023-01-22 07:00] VITALS: BP 151/95; PULSE 84; RESP 18; TEMP 36.5; O2SAT 94
--- NOTE | 2023-01-22 07:06 | PC.NURSE ---
End of Shift: Pt AO throughout shift, reporting pain between 2-7/10. Improved with dilauded and toradol. Reported nausea and vomiting, improved with compazine and zofran until 0630 pt vomited. Pt ambulates independently, tolerates well. NPO with sips and chips. Ostomy output consists of drainage, no BM. Continent with bladder.
[2023-01-22] MEDS: PANTOPRAZOLE SODIUM 40 MG INJ IVP (09:44)
--- NOTE | 2023-01-22 10:07 | PM.GSPN ---
Subjective Subjective Date Seen: 01/22/23 Interval history: Patient's pain is controlled. He ambulated multiple times. He is unable to sleep and very frustrated with that. He continues to have nausea and vomited bilious fluid last night. There is small amount of green fluid in the ostomy bag. Exam Narrative: Exam Narrative: Abdomen is soft, distended, right lower quadrant ileostomy is pink. Small amount of green fluid in the ostomy bag. Midline laparotomy incision with clean steris. There is no surrounding erythema. Const: Vital Signs, click to edit/add: Vital Signs - 24 hr 01/21/23 12:00 01/21/23 15:20 01/21/23 15:20 Temperature 98.2 F 98.4 F Pulse Rate [Right Pulse Oximeter] 79 91 Respiratory Rate 16 16 Blood Pressure [Le ft Arm] 137/87 147/87 H Pulse Oximetry 94 93 93 Oxygen Delivery Me thod Room Air Room Air 01/21/23 15:20 01/21/23 19:00 01/21/23 22:57 Temperature 97.2 F L Pulse Rate [Right Pulse Oximeter] 91 85 Respiratory Rate 16 16 Blood Pressure [Le ft Arm] 148/91 H Pulse Oximetry 94 95 Oxygen Delivery Me thod Room Air 01/21/23 22:57 01/22/23 03:00 01/22/23 07:00 Temperature 98.8 F 98.8 F Pulse Rate [Right Pulse Oximeter] 86 83 Respiratory Rate 16 16 Blood Pressure [Le ft Arm] 147/95 H 141/96 H Pulse Oximetry 95 93 94 Oxygen Delivery Me thod Room Air Room Air Progress Note: A&P Assessment and plan (1) Perforation of sigmoid colon due to diverticulitis: Status: Acute Plan 42-year-old male admitted to the hospital s/p sigmoidectomy with primary anastomosis and diverting loop ileostomy POD 3. Patient continues to have nausea and vomited in the morning after my visit. Will place NG tube. He will continue NPO. Will check his labs today. Patient is frustrated with slow recovery and we had a long discussion about expectations.
[2023-01-22 11:00] VITALS: BP 146/103; PULSE 81; RESP 18; TEMP 36.3; O2SAT 94
[2023-01-22 11:16] LABS: Basophils Percent Auto 0.1 % (0.0-3.0); Eosinophils Percent Auto 0.6 % (0.0-7.0); Hematocrit 44.4 % (37.0-53.0); Hemoglobin* 14.1 gm/dL (13.5-17.5); Immature Granulocytes Pct Auto 1.4 %; Lymphocytes Percent Auto 4.9 % (20-44); Mean Corpuscular HGB Conc 32 gm/dL (32-36); Mean Corpuscular Hemoglobin 29 pg (26-34); Mean Corpuscular Volume 92 fL (80-100); Monocytes Percent Auto 6.9 % (0.0-11.0); Neutrophils Percent Auto 86.1 % (42.0-72.0); Platelet Count* 267 K/uL (140-440); RDW Coefficient of Variation % 13.9 % (11.5-15.5); Red Blood Count 4.84 m/uL (4.30-5.90); White Blood Count* 15.23 K/uL (4.50-11.00)
[2023-01-22 11:26] LABS: Chloride* 101 mmol/L (96-114); Potassium* 3.9 mmol/L (3.6-5.1); Sodium* 136 mmol/L (135-149)
[2023-01-22 11:29] LABS: Blood Urea Nitrogen* 26 mg/dL (5-24); Carbon Dioxide* 27 mmol/L (20-32); Creatinine* 0.8 mg/dL (0.5-1.5); Estimated Glomerular Filt Rate 113 ml/min; Glucose* 152 mg/dL (60-115)
[2023-01-22 11:40] LABS: Slide Review Reflex No
--- NOTE | 2023-01-22 15:34 | PM.IMPN1 ---
Progress Note: A&P Assessment and plan (1) Perforation of sigmoid colon due to diverticulitis: Problem details: Status post sigmoid resection with primary anastomosis and ileostomy placement. Had free air in the abdomen at the time of CT scan on the day of surgery. Likely with some peritonitis. Continuing on Zosyn. At high risk for intra-abdominal abscess formation. Likely third-spacing fluids contributing to his abdominal distension and nausea. Patient has declined NG suctioning Status: Acute (2) Status post ileostomy: Problem details: Minimal NG output with gas and small liquid stool Status: Acute (3) Postoperative ileus: Problem details: Exam suggests significant distension with third-spacing of fluid in the abdomen, probable ileus, Status: Acute (4) Insomnia: Problem details: Optimally patient would use CPAP which he has refused. Would consider increasing bedtime lorazepam but also decreasing daytime use of lorazepam to optimize sleep-wake cycle. Status: Acute (5) Obstructive sleep apnea syndrome: Problem details: Declined CPAP Status: Acute (6) Tobacco dependence: Problem details: Patient elected to discontinue nicotine patch Status: Acute Plan Continue in hospital for management of postoperative ileus and other potential intra-abdominal complications. Will coordinate for surgery for this. Continue to optimize sleep hygiene and sleep quality to the extent possible. Time Spent With Patient Total time spent: Total time spent today is 50 minutes, 30 minutes in coordination of care and discussing with patient and other providers ongoing evaluation management of diverticulitis, postoperative care, bowel function and insomnia. Subjective Date Seen: 01/22/23 Interval history: 42-year-old male admitted to the hospital with perforated sigmoid diverticulitis on January 19. He underwent urgent surgery with primary anastomosis and diverting ileostomy. He has not received an NG tube since surgery. He remains NPO and is frustrated about that. He reports his abdominal pain is better. Today he had a small amount of liquid stool in his ostomy bag. He has been passing some gas. He did have vomiting last night. Not aware of a fever. He reports he is not sleeping at night. This appears to be primarily because he is uncomfortable in the bed. He says is not abdominal pain keeping him awake. He has CPAP at home for sleep apnea. He has not used to CPAP in over year and tells me today that he is not willing to use it now. He does have some insomnia at home but manages it without medications. He has been receiving lorazepam 0.5 mg b.i.d. to t.i.d. in the last 3 days. He is a smoker. He has had a nicotine patch but has taken it off today. He denies nicotine craving at this time. He occasionally drinks alcohol, approximately twice a week. No other recreational drug use. He has been regularly walking in the hallways. Patient reports he has generally been healthy. He has had previous episodes of diverticulitis treated with oral antibiotics. No previous hospitalizations. Family history notable for his father having of heart disease. Exam Narrative: Exam Narrative: He is alert and appears in no distress. Eyes normal. Oropharynx with small airway. Neck is supple without mass or adenopathy. Respirations are clear to auscultation. Cardiovascular: S1, S2, regular rate and rhythm. No murmur gallop or rub. Abdomen: Bowel sounds are diminished. Abdomen is diffusely distended and diffusely mildly tender. No significant fluid in the ostomy bag. Incision is relatively clean. Extremities with no edema. Good perfusion. Const: Vital Signs, click to edit/add: Vital Signs - 24 hr 01/21/23 19:00 01/21/23 22:57 01/21/23 22:57 Temperature 97.2 F L 98.8 F Pulse Rate [Right Pulse Oximeter] 85 86 Respiratory Rate 16 16 Blood Pressure [Le ft Arm] 148/91 H 147/95 H Blood Pressure [Ri ght Arm] Pulse Oximetry 94 95 95 Oxygen Delivery Me thod Room Air Room Air 01/22/23 03:00 01/22/23 07:00 01/22/23 07:00 Temperature 98.8 F 97.7 F Pulse Rate [Right Pulse Oximeter] 83 84 Respiratory Rate 16 18 Blood Pressure [Le ft Arm] 141/96 H 151/95 H Blood Pressure [Ri ght Arm] Pulse Oximetry 93 94 94 Oxygen Delivery Me thod Room Air Room Air 01/22/23 07:00 01/22/23 11:00 Temperature 97.3 F L Pulse Rate [Right Pulse Oximeter] 84 81 Respiratory Rate 18 18 Blood Pressure [Le ft Arm] Blood Pressure [Ri ght Arm] 146/103 H Pulse Oximetry 94 Oxygen Delivery Me thod Room Air Documenting provider has reviewed patient's vital signs: yes Labs Labs: Laboratory Results - last 24 hr 01/22/23 11:07 WBC 15.23 H RBC 4.84 Hgb 14.1 Hct 44.4 MCV 92 MCH 29 MCHC 32 RDW Coeff of [place] 13.9 Plt Count 267 Neut % (Auto) 86.1 H Lymph % (Auto) 4.9 L [place] % (Auto) 6.9 Eos % (Auto) 0.6 Baso % (Auto) 0.1 Neut # (Auto) 13.10 H Lymph # (Auto) 0.70 L [place] # (Auto) 1.10 H Eos # (Auto) 0.10 Baso # (Auto) 0.00 Abs Immat Gran (auto) 0.20 Imm/Tot Granulo (auto) 1.4 Sodium 136 Potassium 3.9 Chloride 101 Carbon Dioxide 27 BUN 26 H Creatinine 0.8 Estimated GFR 113 Glucose 152 H Calcium 9.0
--- NOTE | 2023-01-22 15:38 | PC.NURSE ---
End of Shift: Patient pleasant and cooperative. Afebrile. Rating pain in abdomen 5/10 and PRN Toradol given x1, declined other pain medication. Abdomen distended and bowel sounds hypoactive. Green/brown liquid output from ostomy. Intermittent nausea and emesis x1 this AM, PRN Compazine given x1. Updated MD and in to see patient, ordered NG. Patient stated he wanted to wait for NG to be placed until after he took a nap, when reproached patient declined, education provided. Updated Dr. Maxwell that patient is refusing NG at this time OK to place later if needed and patient is agreeable.
[2023-01-22 16:00] VITALS: BP 169/96; PULSE 75; RESP 18; TEMP 36.4; O2SAT 95
[2023-01-22 16:03] LABS: Magnesium* 2.1 mg/dL (1.5-2.6)
[2023-01-22 16:21] LABS: C Reactive Protein* 20.4 mg/dL (0.5-1.0)
[2023-01-22] MEDS: NICOTINE 21 MG PATCH 1 PATCH TRANSDERMA (18:45)
--- NOTE | 2023-01-22 18:52 | PC.NURSE ---
Shift [id number]- Patient's abdomen is very distended. Hypoactive bowel sounds. He does not complain of pain. Ostomy output very dark liquid green. He declines NG tube placement, has been well-educated on its benefits. He is up independently and ambulates the halls. Blood pressure is elevated- MD updated, no new orders.
[2023-01-22 19:00] VITALS: BP 148/97; PULSE 76; RESP 16; TEMP 36; O2SAT 96
[2023-01-22] MEDS: ENOXAPARIN 40 MG/0.4 ML INJ SUBCUT (21:32)
[2023-01-22] MEDS: LORazepam 2 MG/ML inj 1 MG IVP (22:27)
[2023-01-22 23:00] VITALS: PULSE 76; RESP 16; O2SAT 96
[2023-01-23 02:14] VITALS: BP 144/87; PULSE 80; RESP 16; TEMP 36.8; O2SAT 96
[2023-01-23] MEDS: PIPERACILLIN/TAZOBACTAM 3.375 GM in 0.9 % SODIUM CHLORIDE Mini-bag 100 ML IVPB ×4 (04:08→22:54)
[2023-01-23] MEDS: LORazepam 2 MG/ML inj 0.25 MG IVP (04:10)
[2023-01-23] MEDS: PROCHLORPERAZINE 5 MG/ML VIAL 10 MG IV ×3 (04:10→18:03)
[2023-01-23] MEDS: LACTATED RINGERS 1000 ML 1,000 ML 100 ML IV ×3 (04:25→22:56)
--- NOTE | 2023-01-23 05:43 | PC.NURSE ---
End of Shift: Pt AOx3 throughout shift, reports improved nausea and discomfort. Ostomy output significantly improved since yesterday. Dark green output. Pt and interested in learning ostomy cares such as emptying bag. Pt ambulatory independently throughout room and halls. Continent with bladder. Tolerating sips and chips diet well. Pt appears to be adjusting to outlook.
[2023-01-23 07:00] VITALS: BP 146/92; PULSE 77; RESP 18; TEMP 36.7; O2SAT 95
[2023-01-23 07:59] LABS: Basophils Percent Auto 0.2 % (0.0-3.0); Eosinophils Percent Auto 0.8 % (0.0-7.0); Hematocrit 43.7 % (37.0-53.0); Hemoglobin* 13.8 gm/dL (13.5-17.5); Immature Granulocytes Pct Auto 0.5 %; Lymphocytes Percent Auto 7.4 % (20-44); Mean Corpuscular HGB Conc 32 gm/dL (32-36); Mean Corpuscular Hemoglobin 29 pg (26-34); Mean Corpuscular Volume 92 fL (80-100); Monocytes Percent Auto 8.6 % (0.0-11.0); Neutrophils Percent Auto 82.5 % (42.0-72.0); Platelet Count* 310 K/uL (140-440); Red Blood Count 4.77 m/uL (4.30-5.90); White Blood Count* 17.29 K/uL (4.50-11.00)
[2023-01-23 08:10] LABS: Slide Review Reflex No
[2023-01-23 08:12] LABS: Chloride* 100 mmol/L (96-114); Potassium* 4.2 mmol/L (3.6-5.1); Sodium* 139 mmol/L (135-149)
[2023-01-23 08:15] LABS: Blood Urea Nitrogen* 31 mg/dL (5-24); Carbon Dioxide* 29 mmol/L (20-32); Creatinine* 0.9 mg/dL (0.5-1.5); Estimated Glomerular Filt Rate 109 ml/min; Glucose* 138 mg/dL (60-115)
[2023-01-23 08:16] LABS: Calcium* 9.3 mg/dL (8.4-10.6)
[2023-01-23 08:18] LABS: C Reactive Protein* 8.6 mg/dL (0.5-1.0)
--- NOTE | 2023-01-23 09:43 | P.GSPN_ITS ---
Subjective Subjective Date Seen: 01/23/23 Interval history: Patient is in a better mood today. He states that his abdominal pain is improved. He still has intermittent nausea. He had more green bilious output from his ileostomy. He continues to have hiccups on and off. He is ambulating. Exam Narrative: Exam Narrative: Abdomen is soft, still distended, not tender to palpation. Ileostomy is pink with green fluid in the bag. Midline laparotomy incision is covered with clean Steries no erythema in the inferior open part of the incision. Packing is in place. Const: Vital Signs, click to edit/add: Vital Signs - 24 hr 01/22/23 11:00 01/22/23 16:00 01/22/23 16:00 Temperature 97.3 F L 97.6 F Pulse Rate [Right Pulse Oximeter] 81 75 Respiratory Rate 18 18 Blood Pressure [Ri ght Arm] 146/103 H 169/96 H Pulse Oximetry 94 95 95 Oxygen Delivery Me thod Room Air Room Air 01/22/23 19:00 01/22/23 23:00 01/22/23 23:00 Temperature 96.8 F L Pulse Rate [Right Pulse Oximeter] 76 76 Respiratory Rate 16 16 Blood Pressure [Ri ght Arm] 148/97 H Pulse Oximetry 96 96 Oxygen Delivery Me thod Room Air 01/22/23 23:00 01/23/23 02:14 01/23/23 07:00 Temperature 98.3 F Pulse Rate [Right Pulse Oximeter] 80 Respiratory Rate 16 16 Blood Pressure [Ri ght Arm] 144/87 H Pulse Oximetry 96 95 Oxygen Delivery Me thod Room Air 01/23/23 07:00 Temperature 98.0 F Pulse Rate [Right Pulse Oximeter] 77 Respiratory Rate 18 Blood Pressure [Ri ght Arm] 146/92 H Pulse Oximetry 95 Oxygen Delivery Me thod Room Air Progress Note: A&P Assessment and plan (1) Perforation of sigmoid colon due to diverticulitis: Problem details: Status post sigmoid resection with primary anastomosis and ileostomy placement. Had free air in the abdomen at the time of CT scan on the day of surgery. Likely with some peritonitis. Continuing on Zosyn. At high risk for intra- abdominal abscess formation. Likely third-spacing fluids contributing to his abdominal distension and nausea. Patient has declined NG suctioning Status: Acute Plan 42-year-old male s/p open sigmoidectomy with primary anastomosis and diverting loop ileostomy POD 5. Patient is recovering well. He continues to have intermittent hiccups although his ileostomy is starting to work more. He could have sips of clears although I talked to the patient not to advance fast. His WBC has increased from 15 to 17 today. Will continue watching for now and recheck his WBC tomorrow. If his WBC continues to increase, we may need to re-scan him to evaluate for intra- abdominal abscess. Lovenox for DVT prophylaxis.
[2023-01-23] MEDS: PANTOPRAZOLE SODIUM 40 MG INJ IVP (09:48)
[2023-01-23] MEDS: KETOROLAC 15 MG/ML inj IVP ×3 (10:50→23:40)
[2023-01-23 11:00] VITALS: BP 145/92; PULSE 88; RESP 16; TEMP 36.7; O2SAT 93
--- NOTE | 2023-01-23 14:13 | PM.IMPN1 ---
Progress Note: A&P Assessment and plan (1) Perforation of sigmoid colon due to diverticulitis: Problem details: - Status post sigmoid resection with primary anastomosis and ileostomy placement. Had free air in the abdomen at the time of CT scan on the day of surgery. Likely with some peritonitis. Continuing on Zosyn. At high risk for intra-abdominal abscess formation. Likely third-spacing fluids contributing to his abdominal distension and nausea. Patient has declined NG suctioning - Has ostomy output now and is advancing to sips of clears today Status: Acute (2) Status post ileostomy: Problem details: liquid stool today Status: Acute (3) Postoperative ileus: Problem details: Improving, with stool in bag today Status: Acute (4) Insomnia: Problem details: Optimally patient would use CPAP which he has refused. Increased nighttime lorazepam last night. Decreased daytime lorazepam yesterday (he has not used this today). Status: Acute (5) Obstructive sleep apnea syndrome: Problem details: Declined CPAP Status: Acute (6) Tobacco dependence: Problem details: Patient elected to discontinue nicotine patch Status: Acute Plan Continue in hospital for management of postoperative ileus and other potential intra-abdominal complications. Coordinate for surgery for this. Continue to optimize sleep hygiene and sleep quality to the extent possible. Subjective Time Seen by Provider: 13:45 Date Seen: 01/23/23 Interval history: I have gone to see Nirmal several times today and finally was able to see him this afternoon. The 1st time I went to see him he was in the bathroom emptying his ostomy bag. Subsequent times that I went to see him he was sleeping and I did not want to disturb him since he was finally getting some comfort and sleep. Early afternoon his mother was in there with him and he was awake. He stated that he felt much more comfortable and relaxed today, but has not needed or used the as needed Ativan. He is advancing his diet to sips of clears and has had some ostomy output overnight and today. Last night he was restless and did not sleep much so he has been somewhat sleepy today. He has no other concerns. Denies chest pain or shortness of breath. Exam Narrative: Exam Narrative: General: No acute distress. Awake, alert, oriented. No pallor. No jaundice. Oropharynx: Clear. Mucous membranes moist. Cardiovascular: Regular rate and rhythm. No murmurs, gallops, or rubs. Respiratory: Clear to auscultation bilaterally. No wheezes or crackles. Abdomen: Bowel sounds diminished. Soft, mildly distended, midline incision is clean, dry, and intact, no erythema. Ostomy is pink and viable with copious dark liquid stool in the bag. Extremities: No pedal edema. Const: Vital Signs, click to edit/add: Vital Signs - 24 hr 01/22/23 16:00 01/22/23 16:00 01/22/23 19:00 Temperature 97.6 F 96.8 F L Pulse Rate [Right Pulse Oximeter] 75 76 Respiratory Rate 18 16 Blood Pressure [Ri ght Arm] 169/96 H 148/97 H Pulse Oximetry 95 95 96 Oxygen Delivery Me thod Room Air Room Air 01/22/23 23:00 01/22/23 23:00 01/22/23 23:00 Temperature Pulse Rate [Right Pulse Oximeter] 76 Respiratory Rate 16 16 Blood Pressure [Ri ght Arm] Pulse Oximetry 96 Oxygen Delivery Me thod 01/23/23 02:14 01/23/23 07:00 01/23/23 07:00 Temperature 98.3 F 98.0 F Pulse Rate [Right Pulse Oximeter] 80 77 Respiratory Rate 16 18 Blood Pressure [Ri ght Arm] 144/87 H 146/92 H Pulse Oximetry 96 95 95 Oxygen Delivery Me thod Room Air Room Air 01/23/23 07:00 01/23/23 11:00 Temperature 98.1 F Pulse Rate [Right Pulse Oximeter] 77 88 Respiratory Rate 18 16 Blood Pressure [Ri ght Arm] 145/92 H Pulse Oximetry 93 Oxygen Delivery Me thod Room Air Documenting provider has reviewed patient's vital signs: yes Labs Labs: Laboratory Results - last 24 hr 01/22/23 01/23/23 11:07 07:50 WBC 17.29 H RBC 4.77 Hgb 13.8 Hct 43.7 MCV 92 MCH 29 MCHC 32 RDW Coeff of [place] 14.0 Plt Count 310 Neut % (Auto) 82.5 H Lymph % (Auto) 7.4 L [place] % (Auto) 8.6 Eos % (Auto) 0.8 Baso % (Auto) 0.2 Neut # (Auto) 14.30 H Lymph # (Auto) 1.30 [place] # (Auto) 1.50 H Eos # (Auto) 0.10 Baso # (Auto) 0.00 Abs Immat Gran (auto) 0.10 Imm/Tot Granulo (auto) 0.5 Sodium 139 Potassium 4.2 Chloride 100 Carbon Dioxide 29 BUN 31 H Creatinine 0.9 Estimated GFR 109 Glucose 138 H Calcium 9.3 Magnesium 2.1 C-Reactive Protein 20.4 H 8.6 H Lab Acknowledgement Test Added
[2023-01-23 15:00] VITALS: BP 130/80; PULSE 70; RESP 16; TEMP 36.9; O2SAT 95
[2023-01-23] MEDS: NICOTINE 21 MG PATCH 1 PATCH TRANSDERMA (18:03)
[2023-01-23 19:00] VITALS: BP 128/61; PULSE 79; RESP 18; TEMP 36.7; O2SAT 96
--- NOTE | 2023-01-23 19:01 | PC.NURSE ---
End of Shift: Patient pleasant and cooperative. Afebrile. Rating pain in abdomen up to 4-5/10 and PRN Toradol given x2. Intermittent nausea and PRN Compazine given x2. Copious amounts of dark green liquid output from ostomy. Teaching provided and patient able to transition to emptying ostomy on his own by the end of the shift. Up walking in the hallway frequently throughout shift. Per MD OK for patient to have sips of clears. Steri-strips to midline incision C/D/I. Lower abdominal dressing changed as ordered.
[2023-01-23] MEDS: MELATONIN 3 MG TABLET PO (22:55)
[2023-01-23] MEDS: LORazepam 2 MG/ML inj 1 MG IVP (22:55)
[2023-01-23] MEDS: ENOXAPARIN 40 MG/0.4 ML INJ SUBCUT (22:56)
[2023-01-23 23:00] VITALS: RESP 14; RESP 18; O2SAT 98
[2023-01-24] VITALS (7 sets, daily range): BP systolic 121–145; BP diastolic 71–98; PULSE 62–96; RESP 16–18; TEMP 36.1–36.8; O2SAT 94–99
[2023-01-24] MEDS: HYDROmorphone 0.5 mg/0.5 ml inj IVP ×4 (02:13→22:39)
[2023-01-24] MEDS: PROCHLORPERAZINE 5 MG/ML VIAL 10 MG IV ×3 (02:22→19:57)
--- NOTE | 2023-01-24 05:08 | PC.NURSE ---
End of Shift: Pt pleasant and cooperative throughout shift, AOx3. Ambulatory independently. Tolerating clear liquids, sips and chips well. New IV placed on right forearm at beginning of shift d/t pt reporting discomfort at left forearm IV site. Right forearm IV infiltrated during LR infusion. New IV placed in left hand, flushing well. Pt reported abdominal pain between 4-6/10, well-tolerated with toradol and dilauded for breakthrough pain. Pt appears more talkative, in better spirits, and more independent with ostomy emptying. Ostomy draining well with frequent output around 200cc-300cc of dark green liquid drainage every hour.
[2023-01-24] MEDS: PIPERACILLIN/TAZOBACTAM 3.375 GM in 0.9 % SODIUM CHLORIDE Mini-bag 100 ML IVPB ×4 (05:30→21:17)
[2023-01-24] MEDS: LACTATED RINGERS 1000 ML 1,000 ML 100 ML IV (06:42)
[2023-01-24 07:16] LABS: Basophils Percent Auto 0.4 % (0.0-3.0); Eosinophils Percent Auto 5.9 % (0.0-7.0); Hematocrit 40.1 % (37.0-53.0); Hemoglobin* 12.8 gm/dL (13.5-17.5); Lymphocytes Percent Auto 12.2 % (20-44); Mean Corpuscular HGB Conc 32 gm/dL (32-36); Mean Corpuscular Hemoglobin 29 pg (26-34); Mean Corpuscular Volume 91 fL (80-100); Monocytes Percent Auto 10.9 % (0.0-11.0); Neutrophils Percent Auto 69.6 % (42.0-72.0); Platelet Count* 304 K/uL (140-440); RDW Coefficient of Variation % 13.9 % (11.5-15.5); Red Blood Count 4.43 m/uL (4.30-5.90)
--- NOTE | 2023-01-24 07:26 | PM.GSPN ---
Subjective Subjective Date Seen: 01/24/23 Interval history: Patient is doing well. His abdominal pain is improving and he denies any pain. He denies nausea vomiting. His nausea has improved a lot. He had a lot of stoma output. He is ambulating. Exam Narrative: Exam Narrative: Abdomen is soft, not tender to palpation, ileostomy is functioning with bilious fluid in the bag. Laparotomy incision is covered with dry Steries. There is no surrounding erythema. Const: Vital Signs, click to edit/add: Vital Signs - 24 hr 01/23/23 11:00 01/23/23 15:00 01/23/23 15:00 Temperature 98.1 F 98.5 F Pulse Rate [Right Pulse Oximeter] 88 70 Respiratory Rate 16 16 Blood Pressure [Ri ght Arm] 145/92 H 130/80 Pulse Oximetry 93 95 95 Oxygen Delivery Me thod Room Air Room Air 01/23/23 15:00 01/23/23 19:00 01/23/23 23:00 Temperature 98.0 F Pulse Rate [Right Pulse Oximeter] 70 79 Respiratory Rate 16 18 18 Blood Pressure [Ri ght Arm] 128/61 Pulse Oximetry 96 Oxygen Delivery Me thod Room Air 01/23/23 23:00 01/23/23 23:00 01/24/23 03:00 Temperature 97 F L Pulse Rate [Right Pulse Oximeter] 96 Respiratory Rate 14 16 Blood Pressure [Ri ght Arm] 126/98 H Pulse Oximetry 98 97 Oxygen Delivery Me thod Room Air Progress Note: A&P Assessment and plan (1) Perforation of sigmoid colon due to diverticulitis: Problem details: - Status post sigmoid resection with primary anastomosis and ileostomy placement. Had free air in the abdomen at the time of CT scan on the day of surgery. Likely with some peritonitis. Continuing on Zosyn. At high risk for intra-abdominal abscess formation. Likely third-spacing fluids contributing to his abdominal distension and nausea. Patient has declined NG suctioning - Has ostomy output now and is advancing to sips of clears today Status: Acute Plan 42-year-old male s/p sigmoidectomy with primary anastomosis and diverting loop ileostomy POD 5. Patient is improving. We will advance his diet to clears today. If he is doing well by evening time, we can advance to full liquid. Possible discharge tomorrow. I discussed with the nursing staff to do ostomy care teaching and will work on ordering supplies for the patient to go home with.
[2023-01-24 07:31] LABS: Slide Review Reflex No
[2023-01-24 07:33] LABS: Chloride* 100 mmol/L (96-114); Potassium* 3.8 mmol/L (3.6-5.1); Sodium* 135 mmol/L (135-149)
[2023-01-24 07:36] LABS: Carbon Dioxide* 28 mmol/L (20-32); Estimated Glomerular Filt Rate 96 ml/min
[2023-01-24 07:37] LABS: Blood Urea Nitrogen* 36 mg/dL (5-24); Glucose* 115 mg/dL (60-115)
[2023-01-24] MEDS: ACETAMINOPHEN 325 MG TABLET 650 MG PO (08:23)
[2023-01-24] MEDS: KETOROLAC 15 MG/ML inj IVP ×2 (08:24→18:00)
[2023-01-24] MEDS: PANTOPRAZOLE SODIUM 40 MG INJ IVP (09:45)
[2023-01-24] MEDS: ONDANSETRON 2 MG/ML inj IVP ×2 (11:13→16:48)
--- NOTE | 2023-01-24 12:43 | PM.IMPN1 ---
Progress Note: A&P Assessment and plan (1) Perforation of sigmoid colon due to diverticulitis: Problem details: - Status post sigmoid resection with primary anastomosis and ileostomy placement. Had free air in the abdomen at the time of CT scan on the day of surgery. Likely with some peritonitis. Continuing on Zosyn. At high risk for intra-abdominal abscess formation. Likely third-spacing fluids contributing to his abdominal distension and nausea. Patient has declined NG suctioning - Has ostomy output now and is advancing to clears today Status: Acute (2) Status post ileostomy: Problem details: liquid stool today Status: Acute (3) Postoperative ileus: Problem details: Improving, with stool in bag today Status: Acute (4) Insomnia: Problem details: - Optimally patient would use CPAP which he has refused. Increased nighttime lorazepam 01/22/23. Decreased daytime lorazepam 01/22/23. - Discussed sleep hygiene and daytime wakefulness. Recommended opening window shade and keeping lights on during the day along with more stimulating daytime activities to help him be alert and wakeful during daytime hours. This will likely lead to feeling sleepier by evening at which time he should make the room dark and quiet. Avoid napping during the day. Status: Acute (5) Obstructive sleep apnea syndrome: Problem details: Declined CPAP; he was asking for oxygen while he sleeps, and I encouraged him to use CPAP and noted that oxygen does not effectively treat BRANDIN. Status: Acute (6) Tobacco dependence: Problem details: Patient elected to discontinue nicotine patch Status: Acute Plan Continue in hospital for management of postoperative ileus and other potential intra-abdominal complications. Coordinate for surgery for this. Subjective Time Seen by Provider: 10:50 Date Seen: 01/24/23 Interval history: Feeling a little more painful in the abdomen overnight. Continues to have good, dark liquid ostomy output. Dr. Maxwell saw him early this morning and he advanced his diet to clears. He notes that there has been no further increase in his pain since starting clears. He complains of not being able sleep at night. I noted that every time during the day that I have tried to stop by his room, the room is dark the shades drawn. Exam Narrative: Exam Narrative: General: No acute distress. Awake, alert, oriented. Oropharynx: Clear. Mucous membranes moist. Cardiovascular: Regular rate and rhythm. No murmurs, gallops, or rubs. Respiratory: Clear to auscultation bilaterally. No wheezes or crackles. Abdomen: Bowel sounds diminished. Ostomy pink. Dark liquid stool in bag, about 100 cc, patient states bag was emptied 1 hour before. Soft, distended, mildly tender along the incision just under the umbilicus. No rebound tenderness or guarding. Incision is clean, dry, and intact. Extremities: No pedal edema. Const: Vital Signs, click to edit/add: Vital Signs - 24 hr 01/23/23 15:00 01/23/23 15:00 01/23/23 15:00 Temperature 98.5 F Pulse Rate [Right Pulse Oximeter] 70 70 Respiratory Rate 16 16 Blood Pressure [Ri ght Arm] 130/80 Pulse Oximetry 95 95 Oxygen Delivery Me thod Room Air 01/23/23 19:00 01/23/23 23:00 01/23/23 23:00 Temperature 98.0 F Pulse Rate [Right Pulse Oximeter] 79 Respiratory Rate 18 18 14 Blood Pressure [Ri ght Arm] 128/61 Pulse Oximetry 96 Oxygen Delivery Me thod Room Air 01/23/23 23:00 01/24/23 03:00 01/24/23 07:45 Temperature 97 F L 97.3 F L Pulse Rate [Right Pulse Oximeter] 96 90 Respiratory Rate 16 18 Blood Pressure [Ri ght Arm] 126/98 H 144/90 H Pulse Oximetry 98 97 99 Oxygen Delivery Me thod Room Air Room Air 01/24/23 07:45 01/24/23 11:50 Temperature 97.1 F L Pulse Rate [Right Pulse Oximeter] 62 Respiratory Rate 18 Blood Pressure [Ri ght Arm] 121/71 Pulse Oximetry 99 94 Oxygen Delivery Me thod Room Air Documenting provider has reviewed patient's vital signs: yes Labs Labs: Laboratory Results - last 24 hr 01/24/23 06:43 WBC 15.20 H RBC 4.43 Hgb 12.8 L Hct 40.1 MCV 91 MCH 29 MCHC 32 RDW Coeff of [place] 13.9 Plt Count 304 Neut % (Auto) 69.6 Lymph % (Auto) 12.2 L [place] % (Auto) 10.9 Eos % (Auto) 5.9 Baso % (Auto) 0.4 Neut # (Auto) 10.60 H Lymph # (Auto) 1.90 [place] # (Auto) 1.70 H Eos # (Auto) 0.90 H Baso # (Auto) 0.10 Abs Immat Gran (auto) 0.20 Imm/Tot Granulo (auto) 1.0 Sodium 135 Potassium 3.8 Chloride 100 Carbon Dioxide 28 BUN 36 H Creatinine 1.0 Estimated GFR 96 Glucose 115 Calcium 9.0
--- NOTE | 2023-01-24 14:49 | PC.NURSE ---
End of Shift: Pleasant, very drowsy this shift, states he did not sleep good last night. Midline incision closed with Dermabond, lower half dressing changed and packed with wet packing gauze. Left hand IV did not flush, new R hand IV placed for IV abx and pain medication. Pt reported 5/10 worse pain this shift than days prior. Pt gets nauseous with pain meds so Compazine and Zofran are given with them. 1 dose of PRN Toradol/ Compazine, and Zofran/ .2 of Dilaudid were given this shift. Pt reported a decrease in pain to 3/10 after Dilaudid administration. Pt is tolerating clear liquid diet well with an increased appetite. Green liquid ileostomy output 1650 this shift. Up independent and went for a couple walks in the [place].
[2023-01-24] MEDS: NICOTINE 21 MG PATCH 1 PATCH TRANSDERMA (19:50)
[2023-01-24] MEDS: HYDROCODONE-ACETAMIN 5-325 MG 1 TAB PO (19:57)
[2023-01-24] MEDS: MELATONIN 3 MG TABLET PO (21:16)
[2023-01-24] MEDS: ENOXAPARIN 40 MG/0.4 ML INJ SUBCUT (21:16)
[2023-01-24] MEDS: LORazepam 2 MG/ML inj 0.25 MG IVP (21:17)
[2023-01-25 03:18] VITALS: BP 136/89; PULSE 85; RESP 18; TEMP 36.2; O2SAT 98
[2023-01-25] MEDS: ONDANSETRON 2 MG/ML inj IVP (03:20)
[2023-01-25] MEDS: HYDROCODONE-ACETAMIN 5-325 MG 1 TAB PO ×3 (03:21→12:57)
[2023-01-25] MEDS: LORazepam 2 MG/ML inj 0.25 MG IVP (03:21)
[2023-01-25] MEDS: PIPERACILLIN/TAZOBACTAM 3.375 GM in 0.9 % SODIUM CHLORIDE Mini-bag 100 ML IVPB ×2 (05:00→11:38)
--- NOTE | 2023-01-25 06:20 | PC.NURSE ---
End of shift: Pt A&O. VSS w/ sats >90% on RA. Pt rating pain 5-6/10. See eMAR. PRN Ativan given x2. Pt stated ?this is the most I've slept in awhile?. Ind in room. Stoma is beefy red in color and ostomy is producing dark liquid stool. Pt has been emptying ostomy bag independently. Tolerating full liquid diet.
--- NOTE | 2023-01-25 07:49 | PC.NURSE ---
Ostomy Teaching: Went to see patient this am. Patient currently in bed and his significant other was at bedside. Asked patient how much he was educated on his stoma. Response was I know I have this thing coming out of my belly with a bad attached. I then went over signs to watch for as far as changes in stoma of things to watch for ex: change in color, increase in pain, decrease in output. We discussed the difference between a one piece and two piece appliance. He feels he prefers the one piece appliance. We went over taking a shower with the stoma. He asked about clothes he can wear. Then with his significant other watching I showed them step by step on how to change the appliance. His stoma is beefy red and measuring at approximately 1 1/2. Did touch on diet a little but did see a nutrition consult in the system. His significant other has been watching the different videos available on the [email or web address] web site. They both asked very good questions and appear ready to learn.
[2023-01-25 08:00] VITALS: RESP 18
[2023-01-25 08:05] VITALS: O2SAT 98
[2023-01-25 08:09] VITALS: BP 141/89; PULSE 81; RESP 18; TEMP 36.4; O2SAT 98
[2023-01-25] MEDS: PANTOPRAZOLE SODIUM 40 MG INJ IVP (09:13)
--- NOTE | 2023-01-25 10:42 | P.DS_ITS ---
DS: Providers Provider Time Seen by Provider: 10:15 Date Seen: 01/25/23 Date of admission: 01/19/23 17:47 Primary care physician: Ajit Allen MD Admitting Clinician: Madhuri Michaels MD Consults: 01/19/23 18:43 Consult to Nutrition [CONS] Routine Comment: Reason for consult:: Nutritional Consult Comment: New ileostomy patient 01/24/23 17:41 Consult to Nutrition [CONS] Routine Comment: Reason for consult:: Miscellaneous Comment: has a new ileostomy Attending Physician on discharge: Gilda Sosa MD Date of Discharge: 01/25/23 DS: Diagnosis Discharge Diagnosis (1) Insomnia: Status: Acute Problem details: - Optimally patient would use CPAP which he has refused. Increased nighttime lorazepam 01/22/23. Decreased daytime lorazepam 01/22/23. - Discussed sleep hygiene and daytime wakefulness. Recommended opening window shade and keeping lights on during the day along with more stimulating daytime activities to help him be alert and wakeful during daytime hours. This will likely lead to feeling sleepier by evening at which time he should make the room dark and quiet. Avoid napping during the day. (2) Anxiety: Status: Acute (3) Tobacco dependence: Status: Chronic Problem details: Patient elected to continue nicotine patch, smoked 1/2-1 ppd (4) Perforation of sigmoid colon due to diverticulitis: Status: Acute (5) Obstructive sleep apnea syndrome: Status: Acute Problem details: Declined CPAP; he was asking for oxygen while he sleeps, and I encouraged him to use CPAP and noted that oxygen does not effectively treat BRANDIN. (6) Hyperlipidemia: Status: Chronic DS: Summary Hospital Course Hospital Course: This is a 42-year-old male who underwent urgent surgery with primary anastomosis and diverting ileostomy for perforated sigmoid diverticulitis on January 19 2023. Postoperatively he had a slow return of bowel function which was managed without NG tube due to patient's preference. Patient has history of obstructive sleep apnea but had not used his CPAP in years. He also has tobacco dependence and anxiety for which we were consulted during this hospital stay. Please see diagnoses above for full details. He is discharged home in improved in stable condition today. I spoke with Nirmal and his for 25 minutes about the hygiene, insomnia, anxiety, and tobacco dependence. Time spent discussing smoking cessation with patient: more than 10 minutes Time Spent with Patient Time attestation: Total time spent providing and/or coordinating discharge services: Exam Narrative: Exam Narrative: General: No acute distress. Smiling, awake, alert, oriented. No pallor. No jaundice. Oropharynx: Clear. Mucous membranes moist. Const: Vital Signs, click to edit/add: Vital Signs - 24 hr 01/24/23 11:50 01/24/23 15:00 01/24/23 15:00 Temperature 97.1 F L 98.3 F Pulse Rate [Right Pulse Oximeter] 62 74 Respiratory Rate 18 18 Blood Pressure [Ri ght Arm] 121/71 145/87 H Pulse Oximetry 94 96 96 Oxygen Delivery Me thod Room Air Room Air 01/24/23 15:00 01/24/23 19:00 01/24/23 23:17 Temperature 98.0 F Pulse Rate [Right Pulse Oximeter] 74 81 Respiratory Rate 18 18 Blood Pressure [Ri ght Arm] 132/87 Pulse Oximetry 97 98 Oxygen Delivery Me thod Room Air 01/24/23 23:22 01/25/23 03:18 01/25/23 08:05 Temperature 97.8 F 97.2 F L Pulse Rate [Right Pulse Oximeter] 76 85 Respiratory Rate 18 18 Blood Pressure [Ri ght Arm] 138/83 136/89 Pulse Oximetry 98 98 98 Oxygen Delivery Me thod Room Air 01/25/23 08:09 Temperature 97.5 F L Pulse Rate [Right Pulse Oximeter] 81 Respiratory Rate 18 Blood Pressure [Ri ght Arm] 141/89 H Pulse Oximetry 98 Oxygen Delivery Me thod Room Air Documenting provider has reviewed patient's vital signs: yes DS: Data Data Completed and Pending Completed studies during hospitalization: Ordering Physician: Audrey Hadley M.D. Date of Service: 01/19/23 Procedure(s): CT abdomen pelvis w con Accession Number(s): [id number] cc: Ajit Allen M.D.; Audrey Hadley M.D.~ For Patients: As a result of the Century Cures Act, medical imaging exams and procedure reports are released immediately into your electronic medical record. You may view this report before your referring provider. If you have questions, please contact your health care provider. INDICATION: Severe right lower quadrant abdominal pain. Nausea. History of diverticulitis. COMPARISON: None TECHNIQUE: CT examination of the abdomen and pelvis was performed following the uneventful intravenous administration of 100 cc of Isovue 370. Thin section axial images were obtained from the lung bases through the pubic symphysis. Oral contrast was not administered. Please note that all CT scans at this facility use dose modulation, iterative reconstruction, and/or weight-based dosing when appropriate to reduce radiation dose to as low as reasonably achievable. FINDINGS: LUNG BASES: The right lung is normal. There is atelectasis at the left base.The heart size is normal and the lung bases. There is a small hiatal hernia LIVER/BILIARY SYSTEM:The liver is normal in size and configuration. There is no focal mass and there is no intra- or extra hepatic biliary ductal dilatation.Hepatic steatosis. The gallbladder appears normal ADRENALS: The left adrenal gland is normal. There is a right adrenal mass measuring 3.7 x 3.1 centimeters. Based on its size and appearance, it should undergo formal evaluation by MRI at a clinically appropriate time KIDNEYS, URETERS and BLADDER:The kidneys appear normal. No visible mass, calculus or hydronephrosis. The ureters and bladder as visualized appear normal. SPLEEN:Normal appearance. PANCREAS: Appears normal. RETROPERITONEUM and MESENTERY: There is no mass, adenopathy or aortic aneurysm. GASTROINTESTINAL SYSTEM: Diverticulosis primarily in the sigmoid colon. Significant thickening and inflammatory change of the sigmoid colon deep within the pelvis. The sigmoid in this area is perforated and there is significant gas primarily in the root of the mesentery extending up the retroperitoneum. There is a small amount of extraluminal fluid in this area and there is what is likely free stool in the mesentery best seen on coronal image 74. Surgical consultation is advised. PELVIS: No mass, adenopathy or free fluid. OSSEOUS STRUCTURES and ABDOMINAL WALL: There is an age-appropriate appearance of the osseous structures.No significant abdominal wall defect. Discussed with Dr. Hadley at 10:25 a.m. on January 19, 2023 IMPRESSION: Findings consistent with complicated sigmoid diverticulitis. This appears to be perforated with significant air in the retroperitoneum and mesentery, a small amount of fluid and extraluminal fecal material. There is no collection at this time. Please note that all CT scans at this facility use dose modulation, iterative reconstruction, and/or weight-based dosing when appropriate to reduce radiation dose to as low as reasonably achievable. Dictated by Keron Pascual MD @ 01/19/2023 10:30:22 AM (Electronically Signed) Discharge Plan Discharge Disposition: Home, Self-Care Date of Admission: 01/19/23 17:47 Attending Provider on Discharge: Obie Maxwell Primary Care Provider: Ajit Allen Condition: Improved Anticipated Discharge Date/Time: 01/25/23 12:59 Discharge Medications: New hydrocodone-acetaminophen 5-325 mg tablet 1 tab PO Q6H PRN (Reason: pain) Qty: 25 0RF amoxicillin-pot clavulanate 875-125 mg tablet 1 tab PO BID Qty: 8 0RF nicotine 21 mg/24 hr Patch 24 Hour 1 patch transdermal Q24H Qty: 28 1RF nicotine 14 mg/24 hr patch 24 hour 1 patch transdermal DAILY Qty: 28 0RF Rx Instructions: Start when finished with 21mg patches. nicotine 7 mg/24 hr patch 24 hour 1 patch transdermal Q24H Qty: 14 0RF Rx Instructions: Start when finished with 14mg patches. Discharge Orders: Discharge Order (Routine); Ordered 01/25/23 Ordered By: Obie Maxwell Patient Education: Hydrocodone/Acetaminophen (By mouth), Amoxicillin/Clavulanate Potassium (By mouth), Nicotine (Absorbed through the skin), Ileostomy Care (DC), Ileostomy Diet (DC), Bowel Resection (DC) Additional Instructions: You are being discharged home with a prescription for Imodium (loperamide). This can also be purchased [id number]. Imodium is used when your stoma output is greater than 1500 mL per day and dietary changes as listed above do not help. It is necessary to help avoid dehydration. You can take it up to 4 times a day, 30 min prior to meals and at bedtime to decrease output overnight. You can take up to 2 pills at once. If your output is persistently high despite the above changes, please contact my office had [phone]. Talk with your PCP about anxiety and insomnia if these persist at home. Consider starting daily meditation to help with anxiety. Develop a consistent bedtime routine and sleep hygiene to help with insomnia. You may use [id number] melatonin to help with sleep. To help you quit smoking, think about your triggers and daily routine to identify what could be changed to help you avoid the urge to smoke. Consider having a written down plan for alternative activities for when you feel the urge to smoke. Use nicotine patch daily, do not smoke, vape, chew or use other sources of nicotine while using the patch. Taper down dose of patch every two weeks. Once you have completed the 7 mg patch, you can discontinue nicotine patches altogether. Activity Level: No strenuous activity Discharge Diet: Low Fiber Diet Detail: Ileostomy care instructions Drink 8 to 10 cups of fluid per 24 hours. Avoid caffeine and high sugary drinks as these will stimulate the small intestine and increase stoma output. Empty your pouch when it is about 1/3 full so weight of pouch does not pull on seal. You should be emptying your pouch approximately 5 to 6 times per day. If stool output increases and you are needing to empty your pouch 10 to 12 times per day, contact your primary care provider. Treatment to avoid dehydration may need to be initiated. Foods that you should incorporate with each meal to thicken stool include bananas, cheese, pasta, rice, potatoes, bread, peanut butter and tapioca. Having one or two of these foods as a bedtime snack will also help keep the stool thicker overnight. Only consume about 4 ounces of fluid with each meal in order not to wash food through small intestine. Follow Up Appointments: Madhuri Michaels MD [Staff Physician] - 02/08/23 9:45 am ([facility] with Dr. Michaels for follow-up.) Ajit Allen MD [Primary Care Provider] - 01/31/23 4:30 pm ([facility] for follow-up.) Candy Barber CNP [Nurse Practitioner] - (Follow-up at the wound clinic in 1 week. They will be calling you to inform you of the date/time of your appointment.) Forms: Work/School Release Discharge Comments: Please teach patient's how to do wet to dry dressing changes to the lower midline incision. Please provide supplies until patient is seen in wound clinic.
[2023-01-25 15:13] VITALS: BP 124/86; PULSE 80; RESP 18; TEMP 36.4
--- NOTE | 2023-01-25 15:15 | PC.NURSE ---
Discharge: Patient independent, frequently walking in halls. Met with JACQUES Das to review ostomy care. Had significant other perform wound care in presence of RN prior to discharge. Vitals stable and WNL. Discharge instructions and follow up appointment reviewed. patient discharged @ 1305, ambulated per self to private vehicle.
--- NOTE | 2023-01-25 15:19 | P.DS_ITS ---
DS: Providers Provider Date Seen: 01/25/23 Date of admission: 01/19/23 17:47 Primary care physician: Ajit Allen MD Admitting Clinician: Madhuri Michaels MD Consults: 01/19/23 18:43 Consult to Nutrition [CONS] Routine Comment: Reason for consult:: Nutritional Consult Comment: New ileostomy patient 01/24/23 17:41 Consult to Nutrition [CONS] Routine Comment: Reason for consult:: Miscellaneous Comment: has a new ileostomy Attending Physician on discharge: Obie Maxwell MD Date of Discharge: 01/25/23 DS: Diagnosis Discharge Diagnosis (1) Perforation of sigmoid colon due to diverticulitis: Status: Acute DS: Summary Hospital Course Hospital Course: This is a 42-year-old male who underwent urgent surgery with primary anastomosis and diverting ileostomy for perforated sigmoid diverticulitis on January 19 2023. Postoperatively he had a slow return of bowel function which was managed without NG tube due to patient's preference. Patient has history of obstructive sleep apnea but had not used his CPAP in years. He also has tobacco dependence and anxiety for which we were consulted during this hospital stay. Please see diagnoses above for full details. He is discharged home in improved in stable condition today. I spoke with Nirmal and his for 25 minutes about the hygiene, insomnia, anxiety, and tobacco dependence. Time Spent with Patient Time attestation: Total time spent providing and/or coordinating discharge services: Exam Narrative: Exam Narrative: Abdomen is soft, not distended, not tender to palpation, right lower quadrant ileostomy is pink with bilious fluid in the bag. Midline laparotomy incision is covered with Steri is. The lower part of the midline laparotomy is open and packed with moist gauze. No purulence or surrounding erythema noted around the incision. Const: Vital Signs, click to edit/add: Vital Signs - 24 hr 01/24/23 19:00 01/24/23 23:17 01/24/23 23:22 Temperature 98.0 F 97.8 F Pulse Rate Pulse Rate [Right Pulse Oximeter] 81 76 Respiratory Rate 18 18 Blood Pressure Blood Pressure [Ri ght Arm] 132/87 138/83 Pulse Oximetry 97 98 98 Oxygen Delivery Me thod Room Air Room Air 01/25/23 03:18 01/25/23 08:00 01/25/23 08:05 Temperature 97.2 F L Pulse Rate Pulse Rate [Right Pulse Oximeter] 85 Respiratory Rate 18 18 Blood Pressure Blood Pressure [Ri ght Arm] 136/89 Pulse Oximetry 98 98 Oxygen Delivery Me thod Room Air 01/25/23 08:09 01/25/23 15:13 Temperature 97.5 F L 97.5 F L Pulse Rate 80 Pulse Rate [Right Pulse Oximeter] 81 Respiratory Rate 18 18 Blood Pressure 124/86 Blood Pressure [Ri ght Arm] 141/89 H Pulse Oximetry 98 Oxygen Delivery Me thod Room Air Discharge Plan Discharge Disposition: Home, Self-Care Date of Admission: 01/19/23 17:47 Attending Provider on Discharge: Obie Maxwell Primary Care Provider: Ajit Allen Condition: Improved Anticipated Discharge Date/Time: 01/25/23 12:59 Discharge Medications: New hydrocodone-acetaminophen 5-325 mg tablet 1 tab PO Q6H PRN (Reason: pain) Qty: 25 0RF amoxicillin-pot clavulanate 875-125 mg tablet 1 tab PO BID Qty: 8 0RF nicotine 21 mg/24 hr Patch 24 Hour 1 patch transdermal Q24H Qty: 28 1RF nicotine 14 mg/24 hr patch 24 hour 1 patch transdermal DAILY Qty: 28 0RF Rx Instructions: Start when finished with 21mg patches. nicotine 7 mg/24 hr patch 24 hour 1 patch transdermal Q24H Qty: 14 0RF Rx Instructions: Start when finished with 14mg patches. Discharge Orders: Discharge Order (Routine); Ordered 01/25/23 Ordered By: Obie Maxwell Patient Education: Hydrocodone/Acetaminophen (By mouth), Amoxicillin/Clavulanate Potassium (By mouth), Nicotine (Absorbed through the skin), Ileostomy Care (DC), Ileostomy Diet (DC), Bowel Resection (DC) Additional Instructions: You are being discharged home with a prescription for Imodium (loperamide). This can also be purchased [id number]. Imodium is used when your stoma output is greater than 1500 mL per day and dietary changes as listed above do not help. It is necessary to help avoid dehydration. You can take it up to 4 times a day, 30 min prior to meals and at bedtime to decrease output overnight. You can take up to 2 pills at once. If your output is persistently high despite the above changes, please contact my office had [phone]. Talk with your PCP about anxiety and insomnia if these persist at home. Consider starting daily meditation to help with anxiety. Develop a consistent bedtime routine and sleep hygiene to help with insomnia. You may use [id number] melatonin to help with sleep. To help you quit smoking, think about your triggers and daily routine to identify what could be changed to help you avoid the urge to smoke. Consider having a written down plan for alternative activities for when you feel the urge to smoke. Use nicotine patch daily, do not smoke, vape, chew or use other sources of nicotine while using the patch. Taper down dose of patch every two weeks. Once you have completed the 7 mg patch, you can discontinue nicotine patches altogether. Activity Level: No strenuous activity Discharge Diet: Low Fiber Diet Detail: Ileostomy care instructions Drink 8 to 10 cups of fluid per 24 hours. Avoid caffeine and high sugary drinks as these will stimulate the small intestine and increase stoma output. Empty your pouch when it is about 1/3 full so weight of pouch does not pull on seal. You should be emptying your pouch approximately 5 to 6 times per day. If stool output increases and you are needing to empty your pouch 10 to 12 times per day, contact your primary care provider. Treatment to avoid dehydration may need to be initiated. Foods that you should incorporate with each meal to thicken stool include bananas, cheese, pasta, rice, potatoes, bread, peanut butter and tapioca. Having one or two of these foods as a bedtime snack will also help keep the stool thicker overnight. Only consume about 4 ounces of fluid with each meal in order not to wash food through small intestine. Follow Up Appointments: Madhuri Michaels MD [Staff Physician] - 02/08/23 9:45 am ([facility] with Dr. Michaels for follow-up.) Ajit Allen MD [Primary Care Provider] - 01/31/23 4:30 pm ([facility] for follow-up.) Candy Barber CNP [Nurse Practitioner] - (Follow-up at the wound clinic in 1 week. They will be calling you to inform you of the date/time of your appointment.) Forms: Work/School Release Discharge Comments: Please teach patient's how to do wet to dry dressing changes to the lower midline incision. Please provide supplies until patient is seen in wound clinic.
--- NOTE | 2023-01-27 10:27 | PC.NURSE ---
After receiving an email reached out to patient's significant other as they had not been contacted by [employer]. Patient was signed up for [employer]'s secure start program and they should reach out to patient to help order supplies. Worried that they might right out of supplies called to see what could be done to help. Significant other Ermias who stated they have received the welcome package. Will follow up with [employer] to make sure they make contact with patient for ordering supplies. Told Ermias if they need supplies before contact is made to reach out to us so we can help.
== END 2023-01-25 13:05 | disposition home or self-care (01) | DRG 329 ==
LOC: ED 12:23 → SS 13:29 → MEDSURG 01-20 05:10
PROVIDERS: Family Medicine; Surgery; Admitting Provider Surgery; Emergency Provider Family Medicine; PCP Internal Medicine; Visit Provider Surgery
PROC: 0DTN0ZZ Resection of Sigmoid Colon, Open Approach (ICD-10-PCS; principal; 2023-01-19 13:00)
DX: K57.20 Diverticulitis of large intestine with perforation and abscess without bleeding (principal); K65.0 Generalized (acute) peritonitis; K91.89 Other postprocedural complications and disorders of digestive system; K56.7 Ileus, unspecified; F41.9 Anxiety disorder, unspecified; G47.33 Obstructive sleep apnea (adult) (pediatric); K40.90 Unilateral inguinal hernia, without obstruction or gangrene, not specified as recurrent; F17.210 Nicotine dependence, cigarettes, uncomplicated; G47.00 Insomnia, unspecified; E78.5 Hyperlipidemia, unspecified; G89.18 Other acute postprocedural pain
CPT/HCPCS: 00840; 36415; 64488; 74177; 76942; 80048; 80053; 80076; 81001; 83605; 83690; 83735; 85025; 86140; 87086; 88304; 88307; 94761; 99140; 99284; 99285; A9270; C9113; C9290; J0330; J0665; J0780; J1100; J1170; J1650; J1885; J1940; J2060; J2250; J2270; J2405; J2543; J2704; J2710; J3010; J3475; J7030; J7120; Q9967; S4990

== ENCOUNTER 2023-02-28 12:46 | Outpatient (CLI) | payer OTHER, SELFPAY | END 2023-02-28 12:47 | disposition home or self-care (01) | PROVIDERS: PCP Internal Medicine; Visit Provider Nurse Practitioner Family | DX: Z43.2 Encounter for attention to ileostomy (principal); F43.22 Adjustment disorder with anxiety | CPT/HCPCS: 99213 ==

== ENCOUNTER 2023-03-09 08:05 | Outpatient (CLI) | payer OTHER, SELFPAY ==
--- NOTE | 2023-03-09 08:15 | CRLHL7_ITS ---
For Patients: As a result of the Century Cures Act, medical imaging exams and procedure reports are released immediately into your electronic medical record. You may view this report before your referring provider. If you have questions, please contact your health care provider. INDICATION: Follow up a sigmoidectomy, reanastomosis, and loop ileostomy. Evaluation prior to surgical takedown. TECHNIQUE: Single contrast water soluble Gastrografin enema. FINDINGS: Postsurgical change from a sigmoidectomy and anastomotic reconstruction. There is no evidence for stricture, mass, or obstruction. There is no evidence for leak at the anastomotic site. Contrast easily passed into the cecum. Right lower quadrant ileostomy. Few right-sided ascending and proximal transverse colonic diverticula. The postvoid images demonstrates only a small amount of contrast remaining in the right elif colon and distal small bowel which was not seen on the initial images. Surgical clips in each hemiscrotum likely from vasectomy. 3 minutes 3 seconds fluoroscopy time utilized. IMPRESSION: Few colonic diverticula in the ascending and proximal transverse colon. No obstruction, stricture, or colonic leak. Dictated by Epifanio Herrera MD @ 03/09/2023 11:23:54 AM (Electronically Signed)
== END 2023-03-09 08:06 | disposition home or self-care (01) ==
PROVIDERS: PCP Internal Medicine; Visit Provider Surgery
DX: Z98.890 Other specified postprocedural states (principal); K57.30 Diverticulosis of large intestine without perforation or abscess without bleeding; Z90.49 Acquired absence of other specified parts of digestive tract
CPT/HCPCS: 74270

== ENCOUNTER 2023-03-14 09:29 | Outpatient (CLI) | payer OTHER, SELFPAY ==
--- NOTE | 2023-03-14 14:58 | W.ANESCHARGE ---
Anesthesia Charges Start Date/Time Anesthesia Start Date: 03/14/23 Anesthesia Start Time: 10:52 Stop Date/Time Anesthesia Stop Date: 03/14/23 Anesthesia Stop Time: 11:18
== END 2023-03-14 09:30 | disposition home or self-care (01) ==
LOC: OP CLINIC 09:29
PROVIDERS: PCP Internal Medicine; Visit Provider Surgery
DX: K57.32 Diverticulitis of large intestine without perforation or abscess without bleeding (principal); K63.89 Other specified diseases of intestine; T81.89XA Other complications of procedures, not elsewhere classified, initial encounter; Z98.0 Intestinal bypass and anastomosis status
CPT/HCPCS: 00811; 45380; 88305; J2405; J2704

== ENCOUNTER 2023-03-18 11:18 | Inpatient (IN) | payer OTHER, SELFPAY ==
[2023-03-17] VITALS (21 sets, daily range): BP systolic 104–149; BP diastolic 59–91; PULSE 56–81; RESP 14–20; TEMP 36.1–36.9; O2SAT 95–99; BMI 27.0
[2023-03-17] MEDS: SODIUM CHLORIDE 0.9 % (FLUSH) 10 ML SYRINGE IVF (09:48)
[2023-03-17] MEDS: LACTATED RINGERS 1000 ML 1,000 ML 100 ML IV ×2 (09:48→11:12)
[2023-03-17] MEDS: MIDAZOLAM HCL 1 MG/ML inj IVP (10:01)
--- NOTE | 2023-03-17 10:59 | P.GSOP_ITS ---
Operative Note Pre-op diagnosis: Loop ileostomy in place Post-op diagnosis: Same Type of Procedure: Loop ileostomy takedown Indications: The patient is a 43-year-old male who presented with perforated diverticulitis approximately 2 months ago. He underwent sigmoidectomy with diverting loop ileostomy. He has undergone Gastrografin enema showing no stenosis or leak and colonoscopy which was normal. He is here today for ileostomy takedown. Procedure Description: After discussing the risks and benefits of the procedure, the patient signed informed consent.? The operative site was marked and the patient was brought to the operating room and placed on the operating table in supine position.? Care was taken to pad the patient's pressure points.?? The patient was then intubated by anesthesia.?? The stoma was oversewn with [id number] stitches and the abdomen was then prepped and draped in the usual sterile fashion.? A time-out wa s then performed. The mucocutaneous junction was divided using cautery. Dissection was taken down into the subcutaneous fat. Using a mosquito, I carefully divided the adhesions between the proximal distal loops of bowel and the subcutaneous tissue, freeing the bowel. I then ran a 3-0 Vicryl suture to imbricate the stoma on itself to avoid any contamination of the subcutaneous tissue during dissection. I continued my dissection down to the fascia. The bowel had minimal dense adhesions. Once I was able to free up the proximal and distal loops and had entered the peritoneal cavity, I was able to palpate and visualize that there were no further adhesions of bowel to the abdominal wall. I chose a healthy segment of bowel just proximal and distal to where the ileum had been attached to the fascia. Proximally, I created a mesenteric window. Through this I passed a blue load ALIS stapler and divided the small bowel. Similarly I created a mesenteric window distally just past the area of adhesion to the fascia on the ileum. Through this I passed a blue load ALIS stapler and divided the bowel. The mesentery was then divided between clamps and ties. A small vessel was oversewn with 3-0 Vicryl. The specimen was then sent to pathology. Now having to healthy and well perfused ends of bowel for the anastomosis, I brought them together creating a stay stitch. I then created enterotomies in each and with cautery. This was just proximal to the staple line. Through this I then passed each and of a blue load ALIS stapler. A 70 cm anastomosis was then created. The staple line was inspected. There was no bleeding noted. The common enterotomy was then closed with 3-0 silk sutures in an imbricating fashion. A crotch stitch was also placed. The anastomosis appeared patent well perfused. The staple lines were not bleeding. The mesentery was not bleeding. The fascial opening however was too small to permit the anastomosis and therefore it was opened approximately 1 cm superiorly. I was then able to placed the anastomosis back into the abdomen. A small amount of peritoneum which was attached to the fascia was excised. I then closed the fascia in layers using a 1-0 PDS suture, closing 1st the posterior fascia and then the anterior fascia. 0.5% Marcaine was then injected into the fascia around the stoma. Once this was done, I created a cerclage in the skin using a 4-0 Monocryl to cinch down the skin opening by approximately 30%. A wet to dry dressing was then placed in the wound. This was then covered with an ABD. Anesthesia then performed a tap block. The patient was then woken and transported to the recovery area in stable condition. ? The patient tolerated the procedure well. Findings: Minimal adhesions in the abdomen to the patient's stoma Anesthesia: LEW Surgeon: Madhuri Michaels MD Estimated blood loss (mL): 50 Additional Specimen Information: Ileostomy Condition: stable Disposition: PACU Date of procedure: 03/17/23
[2023-03-17] MEDS: PIPERACILLIN/TAZOBACTAM 3.375 GM INJ IVPB (11:12)
--- NOTE | 2023-03-17 12:04 | W.ANESCHARGE ---
Anesthesia Charges Start Date/Time Anesthesia Start Date: 03/17/23 Anesthesia Start Time: 10:57 Stop Date/Time Anesthesia Stop Date: 03/17/23 Anesthesia Stop Time: 13:00
--- NOTE | 2023-03-17 12:05 | SUR.OPER ---
Updated family per request of Dr. Michaels.
--- NOTE | 2023-03-17 12:46 | W.ANESCHARGE ---
Anesthesia Charges Start Date/Time Anesthesia Start Date: 03/17/23 Anesthesia Start Time: 10:57 Stop Date/Time Anesthesia Stop Date: 03/17/23 Anesthesia Stop Time: 13:00
--- NOTE | 2023-03-17 13:06 | W.PM.NB ---
Nerve Block Nerve Block Time Seen by Provider: 12:55 Date Seen: 03/17/23 Type of block requested by surgeon for post-operative analgesia: TAP Side: bilateral Time out performed: Yes Verification of patient name: Yes Verification of date of : Yes Name of person performing procedure: Kelley Cristina Assistants, if any: Alan Hoffmann Continuous monitoring Was continuous monitoring of O2 sat, B/P, monitor car operator, recorded every 15 minutes?: Yes Procedure Checklist: sterile prep, needles and gloves Ultrasound guided. Images saved: Yes Medications given in 5ml increments after negative aspiration: Marcaine %: 0.25 mL: 30 Needle gauge: 21 and Exparel mL: 10 Needle gauge: 21 Patient tolerated procedure well: Yes Block Charges Block Charge (with Pro Fee): TAP Unilateral Use of Ultrasound Machine for Block: Yes- US Guidance/pain block
[2023-03-17] MEDS: fentaNYL 100 MCG/2 ML inj 50 MCG IVP ×2 (13:15→13:23)
--- NOTE | 2023-03-17 13:43 | SUR.PHASEI ---
patient met discharge criteria per anesthesia
[2023-03-17] MEDS: ONDANSETRON 2 MG/ML inj IVP (14:47)
[2023-03-17] MEDS: HYDROmorphone 0.5 mg/0.5 ml inj IVP ×3 (14:48→20:09)
--- NOTE | 2023-03-17 15:51 | PC.NURSE ---
shift note: pt to floor @ 1340 via bed. pt a&o x3 and states abd pain RLQ abd 09/24. BS hypo x4. LS clr. post op vss initiated. IV patent. small amount of shadowing mid drsg on abd.
[2023-03-17] MEDS: KETOROLAC 15 MG/ML inj IVP (18:34)
[2023-03-17] MEDS: PIPERACILLIN/TAZOBACTAM 3.375 GM in 0.9 % SODIUM CHLORIDE Mini-bag 100 ML IVPB (18:44)
--- NOTE | 2023-03-17 19:35 | PC.NURSE ---
Pt up to BR with SBA, walked in halls independently. Clear liquids w/o complaint. Ice to abdomen. See MAR for pain medication management.
[2023-03-17] MEDS: LACTATED RINGERS 1000 ML 1,000 ML 125 ML IV (20:39)
[2023-03-17] MEDS: HYDROCODONE-ACETAMIN 5-325 MG 1 TAB PO (22:24)
[2023-03-17] MEDS: LORazepam 1 MG TABLET PO (22:26)
[2023-03-18] MEDS: PIPERACILLIN/TAZOBACTAM 3.375 GM in 0.9 % SODIUM CHLORIDE Mini-bag 100 ML IVPB ×3 (00:35→12:14)
[2023-03-18] MEDS: CALCIUM CARBONATE 500 MG CHEW PO (01:16)
[2023-03-18] MEDS: KETOROLAC 15 MG/ML inj IVP ×4 (01:20→21:15)
[2023-03-18 03:00] VITALS: BP 126/69; PULSE 84; RESP 20; TEMP 37.4; O2SAT 88
[2023-03-18] MEDS: HYDROCODONE-ACETAMIN 5-325 MG 1 TAB PO ×3 (04:45→18:00)
[2023-03-18] MEDS: LACTATED RINGERS 1000 ML 1,000 ML 125 ML IV (05:58)
[2023-03-18 06:31] LABS: Basophils Absolute Auto 0.01 K/uL (0.00-0.30); Basophils Percent Auto 0.1 % (0.0-3.0); Eosinophils Absolute Auto 0.02 K/uL (0.00-0.50); Eosinophils Percent Auto 0.2 % (0.0-7.0); Hematocrit 36.2 % (37.0-53.0); Hemoglobin* 11.3 gm/dL (13.5-17.5); Immature Granulocytes Abs Auto 0.01 K/uL (0.00-0.30); Immature Granulocytes Pct Auto 0.1 %; Lymphocytes Percent Auto 16.1 % (20-44); Mean Corpuscular HGB Conc 31 gm/dL (32-36); Mean Corpuscular Hemoglobin 26 pg (26-34); Mean Corpuscular Volume 84 fL (80-100); Monocytes Percent Auto 8.8 % (0.0-11.0); Neutrophils Percent Auto 74.7 % (42.0-72.0); Platelet Count* 190 K/uL (140-440); RDW Coefficient of Variation % 13.2 % (11.5-15.5); Red Blood Count 4.32 m/uL (4.30-5.90); White Blood Count* 10.61 K/uL (4.50-11.00)
[2023-03-18 06:40] LABS: Slide Review Reflex No
[2023-03-18 06:45] LABS: Chloride* 105 mmol/L (96-114); Potassium* 4.2 mmol/L (3.6-5.1); Sodium* 136 mmol/L (135-149)
[2023-03-18 06:47] LABS: Creatinine* 0.9 mg/dL (0.5-1.5); Estimated Glomerular Filt Rate 109 ml/min
[2023-03-18 06:48] LABS: Anion Gap 5 mEq/L (7-15); Blood Urea Nitrogen* 16 mg/dL (5-24); Calcium* 8.9 mg/dL (8.4-10.6); Carbon Dioxide* 26 mmol/L (20-32); Glucose* 99 mg/dL (60-115)
[2023-03-18 07:00] VITALS: BP 143/84; PULSE 67; RESP 18; TEMP 36.3; O2SAT 98
--- NOTE | 2023-03-18 08:20 | PC.NURSE ---
Pt pleasant and cooperative, VSS he is up I in room. Pain controlled with oral meds. He is tolerating a clear liquid diet. He is voiding without difficulty. BT are hypoactive in all quads.
--- NOTE | 2023-03-18 10:49 | PM.GSPN ---
Subjective Subjective Date Seen: 03/18/23 Interval history: Patient is doing well this morning. He has been up ambulating the hallway. Tolerating sips of clear liquids, no appetite. Has not yet passed gas. Denies any nausea or vomiting. Dressing was changed at bedside without difficulty. Exam Narrative: Exam Narrative: General: Alert and oriented, no acute distress Abdomen: Soft, mild distention. Appropriately tender over incision site. No bowel sounds. Const: Vital Signs, click to edit/add: Vital Signs - 24 hr 03/17/23 12:57 03/17/23 13:00 03/17/23 13:05 Temperature 97.5 F L 97.5 F L 97.5 F L Pulse Rate 79 66 66 Pulse Rate [Right Pulse Oximeter] Respiratory Rate 20 18 18 Blood Pressure 118/75 117/75 117/75 Blood Pressure [Le ft Arm] Pulse Oximetry 98 98 [facility] 03/17/23 13:10 03/17/23 13:15 03/17/23 13:20 Temperature 97.5 F L 97.5 F L 97.5 F L Pulse Rate 81 75 74 Pulse Rate [Right Pulse Oximeter] Respiratory Rate 18 17 20 Blood Pressure 119/79 126/82 109/59 L Blood Pressure [Le ft Arm] Pulse Oximetry 99 98 98 Oxygen Delivery [facility] Room Air Room Air Room Air 03/17/23 13:25 03/17/23 13:30 03/17/23 13:40 Temperature 97.5 F L 97 F L 97.8 F Pulse Rate 73 70 63 Pulse Rate [Right Pulse Oximeter] Respiratory Rate 15 14 16 Blood Pressure 132/90 H 143/79 H Blood Pressure [Le ft Arm] 140/83 H Pulse Oximetry 97 99 [facility] Room Air Room Air 03/17/23 13:40 03/17/23 13:55 03/17/23 14:10 Temperature 97.4 F L 97.2 F L 97.2 F L Pulse Rate Pulse Rate [Right Pulse Oximeter] 63 60 58 L Respiratory Rate 16 16 16 Blood Pressure Blood Pressure [Le ft Arm] 140/83 H 134/91 H 133/82 Pulse Oximetry 99 99 99 [facility] Room [facility] Room Air 03/17/23 14:16 03/17/23 14:25 03/17/23 15:25 Temperature 97.8 F 97.2 F L Pulse Rate 63 Pulse Rate [Right Pulse Oximeter] 78 Respiratory Rate 16 16 Blood Pressure Blood Pressure [Le ft Arm] 104/83 134/78 Pulse Oximetry 99 97 [facility] Room Air 03/17/23 15:30 03/17/23 16:00 03/17/23 17:00 Temperature 97.3 F L Pulse Rate Pulse Rate [Right Pulse Oximeter] 60 61 72 Respiratory Rate 18 18 20 Blood Pressure Blood Pressure [Le ft Arm] 141/91 H 139/87 149/87 H Pulse Oximetry 97 97 96 [facility] Room Air Room Air 03/17/23 18:00 03/17/23 20:40 03/17/23 23:00 Temperature 98.0 F 98.4 F Pulse Rate Pulse Rate [Right Pulse Oximeter] 70 79 Respiratory Rate 18 18 Blood Pressure Blood Pressure [Le ft Arm] 129/81 145/81 H Pulse Oximetry 98 99 95 [facility] Room Air 03/18/23 03:00 03/18/23 07:00 03/18/23 07:00 Temperature 99.4 F 97.3 F L Pulse Rate Pulse Rate [Right Pulse Oximeter] 84 67 Respiratory Rate 20 18 Blood Pressure Blood Pressure [Le ft Arm] 126/69 143/84 H Pulse Oximetry 88 98 98 [facility] Room Air 03/18/23 07:00 Temperature Pulse Rate Pulse Rate [Right Pulse Oximeter] 67 Respiratory Rate 18 Blood Pressure Blood Pressure [Le ft Arm] Pulse Oximetry Oxygen Delivery Me thod Labs/Imaging Labs Labs: No leukocytosis. Hemoglobin 11.4, likely intraoperative blood loss and delusional no concern for ongoing bleeding. Progress Note: A&P Assessment and plan (1) H/O ileostomy: Status: Acute Assessment and Plan: Patient is postop day 1 ileostomy takedown. Vital signs stable overnight, afebrile. In good spirits this morning and ambulating the hallway. Tolerating clear liquids but no evidence of return of bowel function, will hold off on advancing diet. Dressing was changed at bedside without difficulty. Will plan to continue with b.i.d. dressing changes while in the hospital, daily at home. -DC IV fluids when taking adequate p.o. intake -continue clear liquids -IV and p.o. pain meds as needed -Ativan as needed for anxiety -encourage ambulation, IS -Lovenox and SCDs for DVT prophylaxis
[2023-03-18 11:00] VITALS: BP 132/83; PULSE 61; RESP 18; TEMP 36; O2SAT 98
--- NOTE | 2023-03-18 13:43 | PC.NURSE ---
End of Shift Note: Krista has been up and ambulating a lot today. Have strongly enc this as he wants to eat real food and explained to him that he needs to really be passing gas before they will adv his diet. His bowel sound were a little more active at noon then when I first assessed his abdomen this morning. Pain has been tolerable with the norco and the tordal see MAR. Dressing was changed. Packed wound with gauze wet with saline and meplix dressing over it. Will continue to monitor.
[2023-03-18] MEDS: SODIUM CHLORIDE 0.9 % (FLUSH) 10 ML SYRINGE IVF (14:06)
[2023-03-18 15:00] VITALS: BP 134/95; PULSE 67; RESP 18; TEMP 36.8; O2SAT 96
[2023-03-18 19:00] VITALS: BP 144/86; PULSE 74; RESP 20; TEMP 36.7; O2SAT 96
[2023-03-18] MEDS: ENOXAPARIN 40 MG/0.4 ML INJ SUBCUT (21:15)
--- NOTE | 2023-03-18 22:57 | PC.NURSE ---
Addendum entered by Regi Kinsey RN 03/18/23 23:01: Offered abdominal binder for pt use. Instructed on proper fit. Pt stated I will try it tomorrow. I don't think I need to sleep with it on. Original Note: Pt up independently in room and halls with visitors. Pt is pleasant and conversational. Pt states I am feeling some rumbling in my abdomen. Hypoactive bowel sounds. Denies flatus. Encouraged ambulation and minimizing opioids use if/when possible. See MAR for medication administration. Pt is tolerating clear liquid diet w/o N/V or burping.
[2023-03-18 23:00] VITALS: BP 129/88; PULSE 74; RESP 20; TEMP 36.3; O2SAT 95; O2SAT 97
[2023-03-18] MEDS: LORazepam 1 MG TABLET PO (23:21)
[2023-03-19 03:00] VITALS: BP 128/73; PULSE 80; RESP 18; TEMP 36.8; O2SAT 94
[2023-03-19] MEDS: KETOROLAC 15 MG/ML inj IVP ×2 (04:04→12:53)
[2023-03-19] MEDS: HYDROCODONE-ACETAMIN 5-325 MG 1 TAB PO ×3 (04:04→19:10)
[2023-03-19] MEDS: SODIUM CHLORIDE 0.9 % (FLUSH) 10 ML SYRINGE 5 ML IVF (04:04)
--- NOTE | 2023-03-19 07:19 | PC.NURSE ---
Shift note: Surgical dressing is C/D/I, surrounding skin is intact and pink. Bowel sounds active, pt stated he feels the movement, however has not passed gas yet.
[2023-03-19 07:39] VITALS: BP 140/94; PULSE 63; RESP 16; TEMP 36.3; O2SAT 96
[2023-03-19 11:33] VITALS: BP 120/87; PULSE 57; RESP 16; TEMP 36.4; O2SAT 97
--- NOTE | 2023-03-19 11:43 | PM.GSPN ---
Subjective Subjective Date Seen: 03/19/23 Interval history: Patient is doing great this morning. Had 2 BMs and is feeling hungry. Pain well controlled and ambulating without difficulty. No concerns. Exam Narrative: Exam Narrative: Gen: alert and oriented. NAD Resp: clear, equal breath rise on room air CV: RRR Abdomen: soft, nontender and non distended. Dressing changed at bedside with wound base showing granulation tissue, no concern for infection. Const: Vital Signs, click to edit/add: Vital Signs - 24 hr 03/18/23 15:00 03/18/23 15:00 03/18/23 19:00 Temperature 98.2 F 98.1 F Pulse Rate [Right Pulse Oximeter] 67 74 Respiratory Rate 18 20 Blood Pressure [Le ft Arm] 134/95 H 144/86 H Pulse Oximetry 96 96 96 Oxygen Delivery Me [facility]od Room Air Room Air 03/18/23 23:00 03/18/23 23:00 03/18/23 23:00 Temperature 97.4 F L Pulse Rate [Right Pulse Oximeter] 74 74 Respiratory Rate 20 20 Blood Pressure [Le ft Arm] 129/88 Pulse Oximetry 95 97 Oxygen Delivery Me thod Room Air 03/19/23 03:00 03/19/23 07:39 03/19/23 11:33 Temperature 98.2 F 97.4 F L 97.6 F Pulse Rate [Right Pulse Oximeter] 80 63 57 L Respiratory Rate 18 16 16 Blood Pressure [Le ft Arm] 128/73 140/94 H 120/87 Pulse Oximetry 94 96 97 Oxygen Delivery Me thod Room Air Room Air Room Air Progress Note: A&P Assessment and plan (1) H/O ileostomy: Status: Acute Assessment and Plan: Patient is postop day 2 ileostomy takedown. Vital signs stable overnight, afebrile. Will advance diet as tolerated today. Encourage ambulation and eduction regarding dressing changes. Anticipate discharge later this evening vs tomorrow morning. -ADAT -IV and p.o. pain meds as needed -Ativan as needed for anxiety -encourage ambulation, IS -Lovenox and SCDs for DVT prophylaxis -Daily wet to dry dressing changes.
[2023-03-19 16:00] VITALS: PULSE 57; RESP 16
--- NOTE | 2023-03-19 18:32 | PC.NURSE ---
End of shift... VSS on RA. Post illeostomy takedown, R abdominal incision site CDI covered with a mepilex dressing and packed with krelix gauze soaked in .9 normal saline. Rating pain consistently at 4-5/10, received [place] PRN throughout the day as well as Ketorlac 1x via IV. Bowel sounds are active, abdomen is tender. Passing gas, he also had 3 loose stools this shift. Tolerating a regular diet well, no nausea or vomiting. Dx orders and the dx paper work is ready, awaiting 's arrival to review. To send Mepilex dressings with them, kerlix, packing q tips, and .9 nacl for to have supplies for dressing change. She completed the dressing change this afternoon, to feel comfortable with it. Pt tolerated well. Finishing up dinner.
--- NOTE | 2023-03-19 19:28 | PC.NURSE ---
Discharge-- Pt discharged to home ambulatory at approximately 1915 with daughter. VSS and pt is afebrile. SPO2 maintained >90% on RA. He c/o pain which he rated 6 out of 10 prior to discharge and was given [place]. Discharge education was provided including diagnosis info, symptoms to report, medications and follow up plan. No further questions asked. SL was removed with tip intact.
--- NOTE | 2023-03-21 09:22 | P.DS_ITS ---
DS: Providers Provider Date Seen: 03/19/23 Date of admission: 03/18/23 11:18 Primary care physician: Ajit Allen MD Admitting Clinician: Madhuri Michaels MD Attending Physician on discharge: Madhuri Michaels MD DS: Summary Hospital Course Hospital Course: Patient is a 43-year-old male who underwent reversal of a loop ileostomy secondary to diverticular disease. Postoperatively he did well. He ambulated independently, voided without difficulty, was tolerating a regular diet and had return of bowel function prior to discharge. He was left with a wound at his previous ostomy site. Patient and his partner were educated regarding daily dressing changes. He will follow-up with his primary surgeon in 2 weeks and was encouraged to call with any questions or concerns. Time Spent with Patient Time attestation: Total time spent providing and/or coordinating discharge services: Exam Narrative: Exam Narrative: Please see exam from same date. DS: Data Data Completed and Pending Completed studies during hospitalization: Procedures Bypass Ileum to Cutaneous, Open Approach (01/19/23) Inspection of Peritoneum, Open Approach (01/19/23) Resection of Appendix, Open Approach (01/19/23) Resection of Sigmoid Colon, Open Approach (01/19/23) Discharge Plan Discharge Disposition: Home, Self-Care Date of Admission: 03/18/23 11:18 Attending Provider on Discharge: [place] To Primary Care Provider: Ajit Allen Condition: Improved Anticipated Discharge Date/Time: 03/19/23 19:00 Discharge Medications: New hydrocodone-acetaminophen 5-325 mg Tablet 1 - 2 tab PO Q6H PRN (Reason: Pain) Qty: 30 0RF Rx Instructions: Do not take at the same time as lorazepam. Continued lorazepam 1 mg tablet 1 mg PO BID PRN (Reason: anxiety) Qty: 20 0RF nicotine 21 mg/24 hr Patch 24 Hour 1 patch transdermal Q24H Qty: 28 1RF Discontinued citalopram 10 mg tablet 10 mg PO DAILY Discharge Orders: Discharge Order (Routine); Ordered 03/19/23 Ordered By: Madhuri Michaels Patient Education: Hydrocodone/Acetaminophen (By mouth), Open Colostomy Reversal (DC) Additional Instructions: Wound care: Change dressing at stoma site daily with gauze moistened with saline. Cover with bandage. OK to shower (let water run over incision if dressing removed prior to shower or cover dressing with saran wrap). No soaking or swimming until wound is closed. Apply ice to the area as needed for swelling. It is also OK to use a heating pad if this provides more comfort to you. Pain control: You were prescribed a pain medication. This medication contains acetaminophen (Tylenol). If you are taking your prescribed pain pills 4 times daily, do not take additional acetaminophen. As your pain improves, you can try taking acetaminophen instead of the prescribed pain pill. It is ok to take Ibuprofen or Naproxen (per directions on packaging). This medication helps with inflammation and swelling. Take an [id number] stool softener while you are taking prescribed pain medications to help alleviate constipation. I recommend Senna and/or Colace. Take as directed on package. If you have not had a bowel movement in 3 days, try taking Miralax as directed on the package. All of these are available over the counter. Follow-up Follow up with Dr. Michaels in 2 weeks Please call if you are experiencing severe pain, nausea, vomiting, difficulty urinating, fever or have not had bowel movement in 4 days after surgery. Activity Level: No strenuous activity Activity Detail: No lifting more than 20 pounds for 4 weeks Discharge Diet: Regular Follow Up Appointments: Madhuri Michaels MD [Staff Physician] - 03/29/23 10:15 am ([facility]) Ajit Allen MD [Primary Care Provider] - Forms: [place] Info Instructions
== END 2023-03-19 19:25 | disposition home or self-care (01) | DRG 331 ==
LOC: OR 11:24 → MEDSURG 14:15
PROVIDERS: Admitting Provider Surgery; PCP Internal Medicine; Visit Provider Surgery
PROC: 0DBE0ZZ Excision of Large Intestine, Open Approach (ICD-10-PCS; CPT 44620; principal; 2023-03-17 10:45)
DX: Z43.2 Encounter for attention to ileostomy (principal); F41.9 Anxiety disorder, unspecified; G47.33 Obstructive sleep apnea (adult) (pediatric); F17.200 Nicotine dependence, unspecified, uncomplicated; G89.18 Other acute postprocedural pain
CPT/HCPCS: 00840; 36415; 64486; 64488; 76942; 80048; 85025; 88304; A9270; C9290; J0330; J0665; J1100; J1170; J1650; J1885; J2250; J2405; J2543; J3010; J3475; J3490; J7120